=== PATIENT | male | born 1935 | race Caucasian/White ===

== ENCOUNTER 2017-03-21 14:46 | Inpatient (IN) ==
--- NOTE | 2017-03-21 15:01 | Emergency Department Note ---
Disposition Clinical Impression: Supraventricular tachycardia Disposition: Home, Self-Care Condition: Good Instructions: Supraventricular Tachycardia (ED), Chemical Cardioversion (ED) Reasons to Return/Additional Instructions: Your found to be in supraventricular tachycardia. You were given a medication to which her heart back into sinus rhythm AKA normal rhythm. Continue to stay hydrated take your medications as previously prescribed. Follow-up with your primary care physician and oncologist as scheduled. Return to the emergency department if symptoms return or you begin to feel worse. Referrals: Musa Lewis MD [Primary Care Provider] - Forms: ED Satisfaction Letter General Adult HPI - General Chief complaint: ED Weakness Stated complaint: Weakness, dizziness, vomiting Time Seen by Provider: 03/21/17 14:59 - Related Data Home Medications Medication Instructions Recorded Confirmed Amlodipine Besylate 10 mg PO DAILY 04/16/16 02/28/17 Atorvastatin [Lipitor] 40 mg PO HS 04/16/16 02/28/17 Carvedilol 3.125 mg PO BID 04/16/16 02/28/17 Diltiazem HCl [Tiazac] 120 mg PO DAILY 04/16/16 02/28/17 DiphenhydraMINE [Benadryl] 25 mg PO HS 04/16/16 02/28/17 Levothyroxine [Synthroid] 88 mcg PO QAM 04/16/16 02/28/17 Loratadine [Claritin] 10 mg PO DAILY PRN 04/16/16 02/28/17 Melatonin 6 mg PO HS 04/16/16 02/28/17 Multivitamin [Multi-Day Vitamins] 1 each PO DAILY 04/16/16 02/28/17 Omeprazole [PriLOSEC] 40 mg PO BID 04/16/16 02/28/17 Phenytoin ER [Dilantin ER] 200 mg PO TID 04/16/16 02/28/17 Resveratrol 100 mg PO DAILY 04/16/16 02/28/17 Terazosin HCl 4 mg PO HS 04/16/16 02/28/17 Triamcinolone Acetonide 1 appl TP DAILY 04/16/16 02/28/17 Valsartan [Diovan] 320 mg PO DAILY 04/16/16 02/28/17 Aspirin [Lo-Dose Aspirin EC] 81 mg PO DAILY 07/06/16 02/28/17 Previous Rx's Medication Instructions Recorded Ferrous Sulfate 325 mg PO TIDWM 30 Days 04/19/16 Polyethylene Glycol 3350 [MiraLAX 1 scoop PO DAILY #510 gm 04/27/16 Powder Bulk 17.9 Oz] Lidocaine/Prilocaine CREAM [Emla] 1 appl TP AD PRN #1 tube 05/03/16 Magic Mouthwash 5 - 10 ml PO TID PRN #480 ml 06/20/16 Mirtazapine [Remeron] 15 mg PO HS #30 tablet 08/22/16 Dexamethasone [Decadron] 4 mg PO AD #30 tablet 10/02/16 Docusate Sodium [Colace] 100 mg PO BID #60 capsule 11/13/16 Sennosides [Senna] 2 tab PO AD #60 tablet 11/13/16 Furosemide [Lasix] 40 mg PO DAILY PRN #30 tablet 11/29/16 Megestrol Acetate [Megace] 10 ml PO QAM #300 mls 12/04/16 Morphine Sulfate SR (12 HR) [MS 15 mg PO Q8HR #90 tablet.er 02/12/17 Contin] Oxycodone HCl [Oxaydo] 5 mg PO Q2H PRN #90 tablet.orl 02/12/17 Prochlorperazine Maleate 10 mg PO Q6HR PRN #60 tablet 02/28/17 [Compazine] Allergies Allergy/AdvReac Type Severity Reaction Status Date / Time No Known Allergies Allergy Verified 03/21/17 14:54 Past Medical History - Past Medical History Medical history: Reports: cancer, coronary artery disease, hypertension, myocardial infarction, seizures, other Surgical history: Reports: appendectomy, cholecystectomy, coronary bypass (CABG) Psychiatric history: Reports: no psych history - Social History Smoking Status: Never smoker Alcohol use: Reports: none Drug use: Reports: none Course Vital Signs Temperature 97.8 F 03/21/17 14:59 Pulse Rate 187 03/21/17 14:59 Respiratory Rate 16 03/21/17 14:59 Blood Pressure 102/74 03/21/17 14:59 O2 Sat by Pulse Oximetry 97 03/21/17 14:59 Temperature 97.8 F 03/21/17 14:59 Pulse Rate 86 03/21/17 16:32 Respiratory Rate 16 03/21/17 16:32 Blood Pressure 107/72 03/21/17 16:32 O2 Sat by Pulse Oximetry 100 03/21/17 16:32 Oxygen Delivery Oxygen Delivery Room Air Medical Decision Making - Lab Data Result diagrams: 03/21/17 15:30 03/21/17 15:30 Lab Results 03/21/17 03/21/17 Range/Units 15:30 15:30 WBC 10.0 (4.3-11.1) K/mcL RBC 3.41 L (4.19-5.50) M/mcL Hgb 9.8 L (12.9-16.9) g/dL Hct 29.6 L (37.5-50.1) % MCV 86.8 (83.0-100.0) fL MCH 28.7 (28.0-33.3) pg MCHC 33.1 (31.6-35.5) g/dL RDW 16.6 H (11.5-14.5) % Plt Count 561 H (140-400) K/mcL MPV 8.9 L (9.4-12.4) fL Immature Gran % 0.5 (0-4) % Seg Neutrophils % 73.9 % Lymphocytes % 13.3 % Monocytes % 10.4 % Eosinophils % 1.6 % Basophils % 0.3 % Neutrophils # 7.4 (1.6-8.9) K/mcL Lymphocytes # 1.3 (0.6-4.6) K/mcL Monocytes # 1.0 (0.0-1.3) K/mcL Eosinophils # 0.2 (0.0-0.6) K/mcL Basophils # 0.0 (0.0-0.2) K/mcL Sodium 132 L (136-145) mEq/L Potassium 3.6 (3.5-4.5) mEq/L Chloride 98 (98-109) mEq/L Carbon Dioxide 22 (19-29) mEq/L BUN 24 (8-26) mg/dL Creatinine 0.84 (0.72-1.25) mg/dL Est GFR ( Amer) > 60 (> 60) Est GFR (Non-Af Amer) > 60 (> 60) BUN/Creatinine Ratio 29 H (6-26) Glucose 112 H (70-99) mg/dL Calculated Osmolality 279 L (280-300) Calcium 9.5 (8.6-10.8) mg/dL Total Bilirubin 0.3 (0.2-1.2) mg/dL AST 89 H (5-34) Units/L ALT 75 H (0-55) Units/L Alkaline Phosphatase 364 H (38-126) Units/L Serum Total Protein 6.9 (6.0-8.3) g/dL Albumin 3.0 L (3.5-5.0) g/dL Globulin 3.9 H (2.4-3.5) g/dL Albumin/Globulin Ratio 0.8 L (1.1-2.2) Critical Care Time Critical Care Time: Yes Total Critical Care Time: 30 Attestation: Patient presents with a tachyarrhythmia requiring IV chemical cardioversion. Attestation Statement - Attestation Attestation: I examined this patient and my medical decision-making was reviewed with the SNAP SHEARER/PA/Advanced Practice Nurse/Resident Physician. I agree with the documented findings, disposition and treatment plan as described except to the extent set forth below. Face to face time provided Patient presents to the treatment area by wheelchair. He has a history of advanced gastric cancer. He is currently getting oral chemotherapy under the care of . He appears somewhat pale on exam. He is alert and speaks fluently. He reports feeling generally weak. Occasional intolerance to oral medications. The patient was seen and evaluated in conjunction with the resident physician Dr. Gross. ECG shows a narrow complex tachycardia suggestive of supraventricular tachycardia 15:45: IV adenosine given with return to near complex rhythm. Patient tolerated procedure well. 18:10: Prior to discharge the patient went back into SVT requiring additional adenosine. We will admit him for telemetry monitoring
[2017-03-21] MEDS ORDERED: *HR* Adenosine 6 MG/2 ML VIAL IVP ONE ×7 (15:36→22:36)
[2017-03-21] MEDS ORDERED: 0.9 % Sodium Chloride 1,000 ML IVC ONE (15:36)
[2017-03-21 15:40] LABS: Basophils % 0.3 %; Eosinophils # 0.2 K/mcL (0.0-0.6); Eosinophils % 1.6 %; Hematocrit 29.6 % (37.5-50.1); Hemoglobin 9.8 g/dL (12.9-16.9); Immature Granulocytes % 0.5 % (0-4); Lymphocytes # 1.3 K/mcL (0.6-4.6); Lymphocytes % 13.3 %; Mean Corpuscular HGB Conc 33.1 g/dL (31.6-35.5); Mean Corpuscular Hemoglobin 28.7 pg (28.0-33.3); Mean Corpuscular Volume 86.8 fL (83.0-100.0); Mean Platelet Volume 8.9 fL (9.4-12.4); Monocytes % 10.4 %; Neutrophils # 7.4 K/mcL (1.6-8.9); Platelet Count 561 K/mcL (140-400); Red Blood Count 3.41 M/mcL (4.19-5.50); Red Cell Distribution Width 16.6 % (11.5-14.5); Segmented Neutrophils % 73.9 %
[2017-03-21 15:55] LABS: Alanine Aminotransferase 75 Units/L (0-55); Albumin/Globulin Ratio 0.8 (1.1-2.2); Alkaline Phosphatase 364 Units/L (38-126); Aspartate Amino Transferase 89 Units/L (5-34); BUN/Creatinine Ratio 29 (6-26); Bilirubin,Total 0.3 mg/dL (0.2-1.2); Blood Urea Nitrogen 24 mg/dL (8-26); Calcium 9.5 mg/dL (8.6-10.8); Carbon Dioxide 22 mEq/L (19-29); Chloride 98 mEq/L (98-109); Globulin 3.9 g/dL (2.4-3.5); Glucose 112 mg/dL (70-99); Osmolality,Calculated 279 (280-300); Potassium 3.6 mEq/L (3.5-4.5); Sodium 132 mEq/L (136-145); Total Protein 6.9 g/dL (6.0-8.3); eGFR For African Americans > 60 (> 60); eGFR For Non-African Americans > 60 (> 60)
--- NOTE | 2017-03-21 18:01 | Emergency Department Note ---
Disposition Clinical Impression: Supraventricular tachycardia Disposition: Home, Self-Care Condition: Good General Adult HPI - General Chief complaint: ED Weakness Stated complaint: Weakness, dizziness, vomiting Time Seen by Provider: 03/21/17 14:59 Source: patient, family Limitations: no limitations - History of Present Illness HPI Narrative: Patient here for evaluation of nausea and weakness. Patient states that he has been having intermittent symptoms for the last week or so. Patient states that he feels like throwing up but has not had any episodes of vomiting. Patient does not have fever or chest pain or shortness of breath. Upon attaching the patient to monitor his heart rate was 180 and EKG showed supraventricular tachycardia. Patient has no history of similar. Adenosine used with good response. Initial labs negative. Patient required a second dose of adenosine and then admission to the hospital. Troponin added after second round of adenosine. Pain Scale: 0 - Related Data Home Medications Medication Instructions Recorded Confirmed Amlodipine Besylate 10 mg PO DAILY 04/16/16 03/21/17 Atorvastatin [Lipitor] 40 mg PO HS 04/16/16 03/21/17 Carvedilol 3.125 mg PO BID 04/16/16 03/21/17 Diltiazem HCl [Tiazac] 120 mg PO DAILY 04/16/16 03/21/17 DiphenhydraMINE [Benadryl] 25 mg PO HS 04/16/16 03/21/17 Levothyroxine [Synthroid] 88 mcg PO QAM 04/16/16 03/21/17 Loratadine [Claritin] 10 mg PO DAILY PRN 04/16/16 03/21/17 Melatonin 6 mg PO HS 04/16/16 03/21/17 Multivitamin [Multi-Day Vitamins] 1 each PO DAILY 04/16/16 03/21/17 Omeprazole [PriLOSEC] 40 mg PO BID 04/16/16 03/21/17 Phenytoin ER [Dilantin ER] 200 mg PO TID 04/16/16 03/21/17 Resveratrol 100 mg PO DAILY 04/16/16 03/21/17 Terazosin HCl 4 mg PO HS 04/16/16 03/21/17 Triamcinolone Acetonide 1 appl TP DAILY 04/16/16 03/21/17 Valsartan [Diovan] 320 mg PO DAILY 04/16/16 03/21/17 Aspirin [Lo-Dose Aspirin EC] 81 mg PO DAILY 07/06/16 03/21/17 Clopidogrel [Plavix] 75 mg PO DAILY 03/21/17 03/21/17 Morphine Sulfate SR (12 HR) [MS 15 mg PO Q8HR PRN 03/21/17 03/21/17 Contin] Sennosides [Senna] 17.2 mg PO HS PRN 03/21/17 03/21/17 Tizanidine HCl 2 mg PO HS PRN 03/21/17 03/21/17 Previous Rx's Medication Instructions Recorded Lidocaine/Prilocaine CREAM [Emla] 1 appl TP AD PRN #1 tube 05/03/16 Magic Mouthwash 5 - 10 ml PO TID PRN #480 ml 06/20/16 Mirtazapine [Remeron] 15 mg PO HS #30 tablet 08/22/16 Docusate Sodium [Colace] 100 mg PO BID #60 capsule 11/13/16 Furosemide [Lasix] 40 mg PO DAILY PRN #30 tablet 11/29/16 Megestrol Acetate [Megace] 10 ml PO QAM #300 mls 12/04/16 Oxycodone HCl [Oxaydo] 5 mg PO Q2H PRN #90 tablet.orl 02/12/17 Prochlorperazine Maleate 10 mg PO Q6HR PRN #60 tablet 02/28/17 [Compazine] Allergies Allergy/AdvReac Type Severity Reaction Status Date / Time No Known Allergies Allergy Verified 03/21/17 14:54 Review of Systems: CONSTITUTIONAL: Weakness and fatigue No weight loss, fever, chills, HEENT: Eyes: No visual changes. Ears, Nose, Throat: No hearing loss, difficulty talking or unable to swallow. SKIN: No rash or itching. CARDIOVASCULAR: No chest pain, chest pressure or chest discomfort. No palpitations or edema. RESPIRATORY: No shortness of breath, cough or sputum. GASTROINTESTINAL:nausea, No anorexia, vomiting or diarrhea. No abdominal pain or blood. GENITOURINARY: No burning on urination or hematuria. NEUROLOGICAL: No headache, dizziness, syncope, paralysis, ataxia, numbness or tingling in the extremities. No change in bowel or bladder control. MUSCULOSKELETAL: No muscle pain, back pain, joint pain or stiffness. Past Medical History - Past Medical History Medical history: Reports: cancer, coronary artery disease, hypertension, myocardial infarction, seizures, other Surgical history: Reports: appendectomy, cholecystectomy, coronary bypass (CABG) Psychiatric history: Reports: no psych history - Social History Smoking Status: Never smoker Smokeless Tobacco Status: No Alcohol use: Reports: none Drug use: Reports: none Physical Exam General appearance: NAD, conversant Eyes: anicteric sclerae, moist conjunctivae; PERRL HENT: Atraumatic; oropharynx clear with moist mucous membranes and no mucosal ulcerations Neck: Normal inspection; Trachea midline; FROM, supple Lungs: CTA, with normal respiratory effort and no intercostal retractions CV: Tachycardia Abdomen: Soft, non-tender; no rebound or gaurding Extremities: No peripheral edema or extremity lymphadenopathy Skin: Normal temperature; no rash, ulcers or lesions Psych: Appropriate mood and affect Neuro: alert and oriented to person, place and time - General Limitations: no limitations General appearance: alert Course - Reevaluation(s) Reevaluation #1: Patient given 6 more grams of adenosine with conversion to sinus rhythm. Reevaluation #2: Upon giving the patient has discharge papers; he went back into SVT and the patient was given another 6 mg of adenosine which converted him back to sinus rhythm. - Consultations Consultation #1: Dr. RAINEY discussed with the hospitalist. Patient accepted for admission Vital Signs Temperature 97.8 F 03/21/17 14:59 Pulse Rate 187 03/21/17 14:59 Respiratory Rate 16 03/21/17 14:59 Blood Pressure 102/74 03/21/17 14:59 O2 Sat by Pulse Oximetry 97 03/21/17 14:59 Temperature 97.8 F 03/21/17 14:59 Pulse Rate 85 03/21/17 18:44 Respiratory Rate 16 03/21/17 19:15 Blood Pressure 107/67 03/21/17 19:15 O2 Sat by Pulse Oximetry 98 03/21/17 18:44 Oxygen Delivery Oxygen Delivery Room Air Medical Decision Making - Medical Records Medical records reviewed: Yes I reviewed the patient's medical records. - Lab Data Lab results reviewed: Yes I reviewed the patient's lab results. Result diagrams: 03/21/17 15:30 03/21/17 15:30 Lab Results 03/21/17 03/21/17 03/21/17 Range/Units 15:30 15:30 15:36 WBC 10.0 (4.3-11.1) K/mcL RBC 3.41 L (4.19-5.50) M/mcL Hgb 9.8 L (12.9-16.9) g/dL Hct 29.6 L (37.5-50.1) % MCV 86.8 (83.0-100.0) fL MCH 28.7 (28.0-33.3) pg MCHC 33.1 (31.6-35.5) g/dL RDW 16.6 H (11.5-14.5) % Plt Count 561 H (140-400) K/mcL MPV 8.9 L (9.4-12.4) fL Immature Gran % 0.5 (0-4) % Seg Neutrophils % 73.9 % Lymphocytes % 13.3 % Monocytes % 10.4 % Eosinophils % 1.6 % Basophils % 0.3 % Neutrophils # 7.4 (1.6-8.9) K/mcL Lymphocytes # 1.3 (0.6-4.6) K/mcL Monocytes # 1.0 (0.0-1.3) K/mcL Eosinophils # 0.2 (0.0-0.6) K/mcL Basophils # 0.0 (0.0-0.2) K/mcL Sodium 132 L (136-145) mEq/L Potassium 3.6 (3.5-4.5) mEq/L Chloride 98 (98-109) mEq/L Carbon Dioxide 22 (19-29) mEq/L BUN 24 (8-26) mg/dL Creatinine 0.84 (0.72-1.25) mg/dL Est GFR ( Amer) > 60 (> 60) Est GFR (Non-Af Amer) > 60 (> 60) BUN/Creatinine Ratio 29 H (6-26) Glucose 112 H (70-99) mg/dL Calculated Osmolality 279 L (280-300) Calcium 9.5 (8.6-10.8) mg/dL Total Bilirubin 0.3 (0.2-1.2) mg/dL AST 89 H (5-34) Units/L ALT 75 H (0-55) Units/L Alkaline Phosphatase 364 H (38-126) Units/L Troponin I 0.05 H* (0-0.03) ng/mL Serum Total Protein 6.9 (6.0-8.3) g/dL Albumin 3.0 L (3.5-5.0) g/dL Globulin 3.9 H (2.4-3.5) g/dL Albumin/Globulin Ratio 0.8 L (1.1-2.2) - Radiology Data Radiology results reviewed: Yes I reviewed the patient's radiology results. - EKG Data EKG #1 EKG attestation: Yes I reviewed and interpreted this EKG. EKG results narrative: Initial EKG shows supraventricular tachycardia with ventricular rate of 187. Patient was given adenosine and EKG changed to sinus rhythm with occasional PVCs. Ventricular rate of 90 with MT interval 175. QRS 93. QTC 41. Patient has no ST elevations or depressions. Patient has similar in to appearance of . Repeat adenosine again converted the patient to sinus rhythm with PVCs. Ventricular rate of 89 bpm. No other changes
[2017-03-21] MEDS ORDERED: Acetaminophen 325 MG TABLET PO PRN (20:48)
[2017-03-21] MEDS ORDERED: Naloxone 0.4 MG/ML INJ IVP PRN (20:48)
[2017-03-21] MEDS ORDERED: Ondansetron 4 MG/2 ML VIAL IVP PRN (20:48)
[2017-03-21] MEDS ORDERED: Sennosides 8.6 MG TABLET PO PRN (20:51)
[2017-03-21] MEDS ORDERED: Loratadine 10 MG TABLET PO PRN (20:51)
[2017-03-21] MEDS ORDERED: tiZANidine 4 MG TABLET PO PRN (20:51)
[2017-03-21] MEDS ORDERED: Furosemide 40 MG TABLET PO PRN (20:51)
[2017-03-21] MEDS ORDERED: *HR* Metoprolol 5 MG/5 ML VIAL IVP PRN (20:58)
[2017-03-21] MEDS: Melatonin 3 MG TABLET PO SCH (22:00)
[2017-03-21] MEDS: Mirtazapine 15 MG TABLET PO SCH (22:00)
[2017-03-21] MEDS: 0.9 % Sodium Chloride 1,000 ML IVC SCH (22:07)
[2017-03-21] MEDS: Diltiazem CD (24hr) 120 MG CAPSULE PO SCH (22:07)
--- NOTE | 2017-03-22 00:21 | Internal Med History&Physical ---
Date of Encounter: 03/21/17 Time of Encounter: 20:00 Assessment and Plan (1) Supraventricular tachycardia Current visit: Yes Status: Acute Frequent SVT episodes, etiology is undetermined. Patient has no symptoms. - Place patient on continuous cardiac monitoring. - Hold amlodipine and valsartan, increased dose of Coreg. Metoprolol 5 mg IV when necessary - Check TSH and magnesium in a.m. - Echocardiogram. - Consult cardiology. (2) Hypertension Current visit: No Status: Chronic Hold home medication amlodipine and valsartan to have more BP space for SVT treatment. BP is not high now. Increase Coreg dose to 6.25 mg twice a day. Continue Cardizem ER by mouth 120 mg once a day. Qualifiers: Hypertension type: essential hypertension Qualified Code(s): I10 - Essential (primary) hypertension (3) Seizure Current visit: Yes Status: Acute Stable, continue home medications. 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 Patient is following oncology as outpatient. Qualifiers: Malignant neoplasm of stomach location: fundus of stomach Qualified Code(s) : C16.1 - Malignant neoplasm of fundus of stomach (7) Coronary artery disease Current visit: No Status: Chronic S/p CABG. No chest pain. Continue home medications. Qualifiers: Coronary Disease-Associated Artery/Lesion type: bypass graft, autologous vein Associated angina: without angina Qualified Code(s): I25.810 - Atherosclerosis of coronary artery bypass graft(s) without angina pectoris Internal Medicine - H&P: HPI Chief complaint: Weakness Admitted From: Home Plans for Post Hospital Care: Home History of present illness: Mr. Llamas is a 82 year old male presented to ER for weakness. Patient said that he has weakness of for about 1 week. He denies chest pain, shortness of breath, she had mild nausea but no vomiting, patient has no fever. In emergency room, he was found SVT, which converts to sinus rhythm on adenosine IV. However, patient did develop another episode of SVT and the need another dose of adenosine. Patient was admitted for observation. After I saw patient in the 2NE, he developed another episode of SVT, converts to sinus after 6 mg adenosine. I discussed the CODE STATUS with patient. He is DNRCCA. Past Med Surg Social Fam HX - Past Medical History Medical history: cancer, coronary artery disease, hypertension, myocardial infarction, seizures, other Psychiatric history: no psych history - Past Surgical History Surgical History: appendectomy, cholecystectomy, coronary bypass (CABG) - Social History Smoking Status: Never smoker Smokeless Tobacco Status: No Alcohol use: none Drug use: none - Family History Mother History Unknown: Yes Living Status: Father History Unknown: Yes Living Status: Internal Medicine - H&P: Meds Amlodipine Besylate 10 mg PO DAILY 04/16/16 [History] Atorvastatin [Lipitor] 40 mg PO HS 04/16/16 [History] Carvedilol 3.125 mg PO BID 04/16/16 [History] Diltiazem HCl [Tiazac] 120 mg PO DAILY 04/16/16 [History] DiphenhydraMINE [Benadryl] 25 mg PO HS 04/16/16 [History] Levothyroxine [Synthroid] 88 mcg PO QAM 04/16/16 [History] Loratadine [Claritin] 10 mg PO DAILY PRN 04/16/16 [History] Melatonin 6 mg PO HS 04/16/16 [History] Multivitamin [Multi-Day Vitamins] 1 each PO DAILY 04/16/16 [History] Omeprazole [PriLOSEC] 40 mg PO BID 04/16/16 [History] Phenytoin ER [Dilantin ER] 200 mg PO TID 04/16/16 [History] Resveratrol 100 mg PO DAILY 04/16/16 [History] Terazosin HCl 4 mg PO HS 04/16/16 [History] Triamcinolone Acetonide 1 appl TP DAILY 04/16/16 [History] Valsartan [Diovan] 320 mg PO DAILY 04/16/16 [History] Lidocaine/Prilocaine CREAM [Emla] 1 appl TP AD PRN #1 tube 05/03/16 [Rx] Magic Mouthwash 5 - 10 ml PO TID PRN #480 ml 06/20/16 [Rx] Aspirin [Lo-Dose Aspirin EC] 81 mg PO DAILY 07/06/16 [History] Mirtazapine [Remeron] 15 mg PO HS #30 tablet 08/22/16 [Rx] Docusate Sodium [Colace] 100 mg PO BID #60 capsule 11/13/16 [Rx] Furosemide [Lasix] 40 mg PO DAILY PRN #30 tablet 11/29/16 [Rx] Megestrol Acetate [Megace] 10 ml PO QAM #300 mls 12/04/16 [Rx] Oxycodone HCl [Oxaydo] 5 mg PO Q2H PRN #90 tablet.orl 02/12/17 [Rx] Prochlorperazine Maleate [Compazine] 10 mg PO Q6HR PRN #60 tablet 02/28/17 [Rx] Clopidogrel [Plavix] 75 mg PO DAILY 03/21/17 [History] Morphine Sulfate SR (12 HR) [MS Contin] 15 mg PO Q8HR PRN 03/21/17 [History] Sennosides [Senna] 17.2 mg PO HS PRN 03/21/17 [History] Tizanidine HCl 2 mg PO HS PRN 03/21/17 [History] Allergies No Known Allergies Allergy (Verified 03/21/17 14:54) All Systems PM: A 10-system review of systems was performed and is negative for pertinent findings except as documented above in the HPI. - Constitutional Vitals: Temp Pulse Resp BP Pulse Ox 98.2 F 96 18 137/95 97 03/21/17 19:33 03/21/17 19:33 03/21/17 19:33 03/21/17 19:33 03/21/17 19:59 General appearance: Present: A&O X 3, no acute distress, answers questions appropriately - Head Head exam: Present: atraumatic, normocephalic - Eye Eye exam: Present: PERRL, conjuntiva pink, sclera anicteric Pupils: Present: PERRL - Neck Neck exam general surgery: Present: supple, trachea midline. Absent: lymphadenopathy - Respiratory Respiratory exam: Present: CTAB. Absent: accessory muscle use, rales, rhonchi, wheezes - Cardiovascular Cardiovascular exam: Present: RRR, +S1, +S2. Absent: diastolic murmur, gallop, rubs, systolic murmur - GI/Abdominal GI/Abdominal exam: Present: normal bowel sounds, soft, no peritoneal signs. Absent: distended, tenderness - Extremities Exam Extremities exam: Present: warm, radial pulses palpable and symetrical. Absent : calf tenderness, cyanotic, pedal edema - Neurological Exam Neurological exam: Present: CN II-XII intact, oriented X3, no focal deficits. Absent: pronater drift, facial droop, speech deficit - Skin Skin exam: Present: dry, intact Internal Med - H&P Results - Labs CBC & Chem 7: 03/21/17 15:30 03/21/17 15:30 - EKG Data -: EKG Interpreted by Myself Rate: tachycardia
[2017-03-22] MEDS ORDERED: *HR* Digoxin 0.5 MG/2 ML AMPUL IVP ONE (00:41)
[2017-03-22 04:29] LABS: Basophils % 0.4 %; Eosinophils # 0.2 K/mcL (0.0-0.6); Eosinophils % 2.6 %; Hematocrit 26.9 % (37.5-50.1); Hemoglobin 8.9 g/dL (12.9-16.9); Immature Granulocytes % 0.4 % (0-4); Lymphocytes # 1.2 K/mcL (0.6-4.6); Lymphocytes % 15.8 %; Mean Corpuscular HGB Conc 33.1 g/dL (31.6-35.5); Mean Corpuscular Volume 87.6 fL (83.0-100.0); Mean Platelet Volume 9.1 fL (9.4-12.4); Monocytes # 0.7 K/mcL (0.0-1.3); Monocytes % 9.4 %; Neutrophils # 5.6 K/mcL (1.6-8.9); Platelet Count 411 K/mcL (140-400); Red Blood Count 3.07 M/mcL (4.19-5.50); Segmented Neutrophils % 71.4 %
[2017-03-22 04:37] LABS: Alanine Aminotransferase 64 Units/L (0-55); Albumin 2.6 g/dL (3.5-5.0); Albumin/Globulin Ratio 0.7 (1.1-2.2); Alkaline Phosphatase 324 Units/L (38-126); Aspartate Amino Transferase 77 Units/L (5-34); BUN/Creatinine Ratio 28 (6-26); Bilirubin,Total 0.4 mg/dL (0.2-1.2); Blood Urea Nitrogen 19 mg/dL (8-26); Calcium 8.7 mg/dL (8.6-10.8); Carbon Dioxide 21 mEq/L (19-29); Chloride 104 mEq/L (98-109); Globulin 3.6 g/dL (2.4-3.5); Glucose 96 mg/dL (70-99); Magnesium 1.6 mg/dL (1.6-2.6); Osmolality,Calculated 280 (280-300); Phosphorous 3.4 mg/dL (2.3-4.7); Potassium 3.5 mEq/L (3.5-4.5); Sodium 134 mEq/L (136-145); Total Protein 6.2 g/dL (6.0-8.3); eGFR For African Americans > 60 (> 60); eGFR For Non-African Americans > 60 (> 60)
[2017-03-22] MEDS: *HR* Heparin 5,000 UNIT/ML VIAL SQ SCH ×2 (06:20→18:09)
--- NOTE | 2017-03-22 06:59 | Event Note ---
Date of Encounter: 03/22/17 Time of Encounter: 06:00 Pt has SVT and sinus rhytms alternatively during whole night, he tolerate well, no symptoms. Cannot stay at sinus rhythm. Since BP at lower side, no further metoprolol or adenosine given. Digoxin 0.5 mg iv once given at around 1 am, no significant change with the rhythm. Waiting for cardiology input.
--- NOTE | 2017-03-22 08:56 | Cardiology Consult Note ---
Date of Encounter: 03/22/17 Time of Encounter: 08:30 Assessment and Plan (1) Supraventricular tachycardia Current Visit: Yes Status: Acute Currently in SVT HR 160's. H/o SVT seen on previous holter monitors. Primary team reports difficult to control SVT overnight. He received two rounds of adenosine in the ER with initial conversion to NSR. He continued to have intermittent SVT overnight treated with IV lopressor. D/t low blood pressure he was then given IV digoxin this morning. Currently in sustained SVT. Avg Hr overnight was 136 bpm. I will review EKG with Dr. Israel and discuss plan of care. Patient is currently asymptomatic. He does not respond to vagal maneuvers. Continue IV fluid to keep b/p up. Echocardiogram 09/2016: EF 65%. Mild concentric LVH. (2) PAF (paroxysmal atrial fibrillation) Current Visit: Yes Status: Chronic H/o PAF. He is currently not on anticoagulation d/t seizures and gastric cancer. (3) Coronary artery disease Current Visit: No Status: Chronic H/o 2V CABG in 2007 and previous PCI. Continue asa, statin, and beta yadi. He denies chest pain. Mild troponin at 0.05 from demand ischemia from SVT. Continue to monitor. Qualifiers: Coronary Disease-Associated Artery/Lesion type: bypass graft, autologous vein Associated angina: without angina Qualified Code(s): I25.810 - Atherosclerosis of coronary artery bypass graft(s) without angina pectoris Discussion w patient/family: The assessment and plan as outlined above was discussed with the patient and/or family members who expressed understanding and agreement. All questions were answered. Thank you for involving us in the care of your patient. Please call with any questions. History of Present Illness Consult date: 03/22/17 Requesting physician: Raúl Sadler Consult reason: SVT Chief complaint: fatigue, weakness History of present illness: Mr. Llamas is a 82 year old male with a history of CAD, previous 2V CABG in 2007, prior PCI, PAF,SVT, mild ascending aortic aneurysm (4.3 cm), and advanced adenocarcinoma of the stomach currently on chemotherapy. He presented to the hospital c/o not feeling well overall for one week. C/o weakness and . He was found to have SVT. He was treated with metoprolol and 2 rounds of adenosine IV with initial conversion to SR. He continued to have recurrent SVT overnight. B/p dropped as low as 60 systolic and he required IV fluid bolus. HR currently 160's. He was given IV digoxin this morning with no response. Denies chest pain or discomfort. No palpitations, near syncope, or syncope. Reports 50 lb weight loss over the past six months. He is not on anticoagulation d/t h/o seizures and gastric cancer. Prior studies: Vasodilator nuclear stress test 07/30/2014: Negative for ischemia or prior infarct. Holter monitor 04/27/2014: Normal sinus rhythm with an average heart rate of 64. Occasional PACs. For episodes of SVT, longest 65 beats. Echocardiogram 04/11/2014: EF 60%. Mild TR. Echocardiogram 09/2016: EF 65%. Mild concentric LVH. CT thorax 08/10/2014: Mild dilation of the ascending aorta measuring 4.3 cm ( 2012 - 4.3 cm x 4.3 cm). Cholesterol 01/24/2016: Total 154, LDL 94, HDL 37, and triglycerides 113. Past Med Surg Social Fam HX - Past Medical History Medical history: atrial fibrillation, cancer, coronary artery disease, hypertension, myocardial infarction, seizures, SVT, other Psychiatric history: no psych history - Past Surgical History Surgical History: appendectomy, cholecystectomy, coronary bypass (CABG) - Social History Smoking Status: Never smoker Smokeless Tobacco Status: No Alcohol use: none Drug use: none - Family History Mother History Unknown: Yes Living Status: Father History Unknown: Yes Living Status: Medications and Allergies Amlodipine Besylate 10 mg PO DAILY 04/16/16 [History] Atorvastatin [Lipitor] 40 mg PO HS 04/16/16 [History] Carvedilol 3.125 mg PO BID 04/16/16 [History] Diltiazem HCl [Tiazac] 120 mg PO DAILY 04/16/16 [History] DiphenhydraMINE [Benadryl] 25 mg PO HS 04/16/16 [History] Levothyroxine [Synthroid] 88 mcg PO QAM 04/16/16 [History] Loratadine [Claritin] 10 mg PO DAILY PRN 04/16/16 [History] Melatonin 6 mg PO HS 04/16/16 [History] Multivitamin [Multi-Day Vitamins] 1 each PO DAILY 04/16/16 [History] Omeprazole [PriLOSEC] 40 mg PO BID 04/16/16 [History] Phenytoin ER [Dilantin ER] 200 mg PO TID 04/16/16 [History] Resveratrol 100 mg PO DAILY 04/16/16 [History] Terazosin HCl 4 mg PO HS 04/16/16 [History] Triamcinolone Acetonide 1 appl TP DAILY 04/16/16 [History] Valsartan [Diovan] 320 mg PO DAILY 04/16/16 [History] Lidocaine/Prilocaine CREAM [Emla] 1 appl TP AD PRN #1 tube 05/03/16 [Rx] Magic Mouthwash 5 - 10 ml PO TID PRN #480 ml 06/20/16 [Rx] Aspirin [Lo-Dose Aspirin EC] 81 mg PO DAILY 07/06/16 [History] Mirtazapine [Remeron] 15 mg PO HS #30 tablet 08/22/16 [Rx] Docusate Sodium [Colace] 100 mg PO BID #60 capsule 11/13/16 [Rx] Furosemide [Lasix] 40 mg PO DAILY PRN #30 tablet 11/29/16 [Rx] Megestrol Acetate [Megace] 10 ml PO QAM #300 mls 12/04/16 [Rx] Oxycodone HCl [Oxaydo] 5 mg PO Q2H PRN #90 tablet.orl 02/12/17 [Rx] Prochlorperazine Maleate [Compazine] 10 mg PO Q6HR PRN #60 tablet 02/28/17 [Rx] Clopidogrel [Plavix] 75 mg PO DAILY 03/21/17 [History] Morphine Sulfate SR (12 HR) [MS Contin] 15 mg PO Q8HR PRN 03/21/17 [History] Sennosides [Senna] 17.2 mg PO HS PRN 03/21/17 [History] Tizanidine HCl 2 mg PO HS PRN 03/21/17 [History] Allergies No Known Allergies Allergy (Verified 03/21/17 14:54) All Systems Review: A 10-system review of systems was performed and is negative for pertinent findings except as documented above in the HPI. Physical Examination Vital Signs, Last 4 Hours Temp Pulse Resp BP Pulse Ox 03/22/17 06:54 97.6 F 171 16 82/71 96 General: Conversant, No Apparent Distress HEENT: Atraumatic, Normocephaly, Mucus Membranes Moist Neck: No JVD, Normal carotid pulses Cardiac: Normal S1 and S2, Other (HR 165, SVT) Lungs: Normal Breath Sounds, No Wheeze, Rales, Rhonchi Neuro: Alert and responsive, No focal deficits noted Abdomen: Soft, Non-Tender Skin: No rashes noted on visualized skin Musculoskeletal: No Chest Wall Tenderness Extremities: No Clubbing, No Cyanosis, No Edema, Normal Pulses Results 03/22/17 04:03 03/22/17 04:03 Lab Results 03/22/17 03/22/17 03/22/17 04:03 04:03 04:03 WBC 7.8 Hgb 8.9 L Hct 26.9 L Plt Count 411 H Sodium 134 L Potassium 3.5 Chloride 104 Carbon Dioxide 21 BUN 19 Creatinine 0.69 L Glucose 96 Calcium 8.7 Magnesium 1.6 Total Bilirubin 0.4 AST 77 H ALT 64 H Alkaline Phosphatase 324 H TSH 2.572 - Imaging and Cardiology Stress Test: report reviewed Echo: report reviewed - EKG Interpretation EKG results cardiology: personally reviewed (SVT, possible AVNRT, HR 177 bpm.) Consult Discharge Plan - Plan Referrals: Musa Lewis MD [Primary Care Provider] - 04/05/17 10:00 am
--- NOTE | 2017-03-22 09:05 | Internal Med Progress Note ---
<Jonny Parker - Last Filed: 03/22/17 13:38> Date of Encounter: 03/22/17 Time of Encounter: 13:38 - Assessment and plan (1) Supraventricular tachycardia Current Visit: Yes Status: Acute Assessment and plan: 82-year-old male with history of gastric cancer, coronary artery disease, hypertension, myocardial infarction presents with chief complaint weakness, found to be in supraventricular tachycardia. Patient was converted to sinus rhythm with adenosine however rhythm converted back into SVT. This occurred 3 times and patient became hypotensive with blood pressures 80s over 50. He was given digoxin without success. At this point patient was started on IV fluids and cardiology was consulted. Continues to be in SVt with rate from 140-170s Previous echo shows EF of 65%. Nuclear stress test in 2013 negative for ischemia. Cardiology recommends patient started on amiodarone drip. Patient was transferred to [facility]. Continue telemetry Patient is awake, alert and oriented 3, conversing well, with oxygen saturation were 90% on room air. (2) Coronary artery disease Current Visit: Yes Status: Chronic Assessment and plan: Status post 2 vessel CABG in 2007 with previous PCI. Continue aspirin, statin, beta yadi. Troponin of 0.05 likely from demand ischemia from SVT. Qualifiers: Coronary Disease-Associated Artery/Lesion type: bypass graft, autologous vein Associated angina: without angina Qualified Code(s): I25.810 - Atherosclerosis of coronary artery bypass graft(s) without angina pectoris (3) DVT prophylaxis Current Visit: Yes Status: Acute Assessment and plan: Continue heparin. (4) Gastric cancer Current Visit: Yes Status: Chronic Assessment and plan: Metastatic gastric adenocarcinoma Undergoing chemotherapy currently on 5-FU On MS Contin 3 times a day and oxycodone IR for cancer associated pain followed by Dr. Stearns Qualifiers: Malignant neoplasm of stomach location: fundus of stomach Qualified Code(s) : C16.1 - Malignant neoplasm of fundus of stomach (5) Seizure Current Visit: Yes Status: Acute Assessment and plan: hx of seizure on Dilantin, will continue. - Subjective Interval history: Patient states he presented to ER with chief complaint of weakness started 1 week ago. This morning patient's heart rate ranges from 140s to 170s. EKG shows SVT. He denies chest pain, shortness of breath, nausea, abdominal pain, numbness, tingling. - Constitutional Vitals: Temp Pulse Resp BP Pulse Ox 97.6 F 171 16 82/71 96 03/22/17 06:54 03/22/17 06:54 03/22/17 06:54 03/22/17 06:54 03/22/17 06:54 General appearance: Present: A&O X 3, no acute distress, answers questions appropriately - Head Head exam: Present: atraumatic, normocephalic - Eye Eye exam: Present: PERRL, conjuntiva pink, sclera anicteric - Neck Neck exam general surgery: Present: supple, trachea midline. Absent: lymphadenopathy - Respiratory Respiratory exam: Present: CTAB. Absent: accessory muscle use, rales, rhonchi, wheezes - Cardiovascular Cardiovascular exam: Present: +S1, +S2, tachycardia. Absent: diastolic murmur, gallop, rubs, systolic murmur - GI/Abdominal GI/Abdominal exam: Present: normal bowel sounds, soft, no peritoneal signs. Absent: distended, tenderness - Extremities Exam Extremities exam: Present: warm, radial pulses palpable and symetrical. Absent : calf tenderness, cyanotic, pedal edema - Neurological Exam Neurological exam: Present: CN II-XII intact, oriented X3, no focal deficits. Absent: pronater drift, facial droop, speech deficit - Skin Skin exam: Present: dry, intact Internal Medicine: Result - Labs CBC & Chem 7: 03/22/17 04:03 03/22/17 04:03 Labs: Short CBC 03/22/17 Range/Units 04:03 WBC 7.8 (4.3-11.1) K/mcL Hgb 8.9 L (12.9-16.9) g/dL Hct 26.9 L (37.5-50.1) % Plt Count 411 H (140-400) K/mcL Neutrophils # 5.6 (1.6-8.9) K/mcL BMP 03/22/17 04:03 Sodium 134 L Potassium 3.5 Chloride 104 Carbon Dioxide 21 BUN 19 Creatinine 0.69 L Glucose 96 Calcium 8.7 Liver Function 03/22/17 Range/Units 04:03 Total Bilirubin 0.4 (0.2-1.2) mg/dL AST 77 H (5-34) Units/L ALT 64 H (0-55) Units/L Alkaline Phosphatase 324 H (38-126) Units/L Albumin 2.6 L (3.5-5.0) g/dL Consult Discharge Plan - Plan Referrals: Musa Lewis MD [Primary Care Provider] - 04/01/17 10:30 am <Raúl Sadler - Last Filed: 03/22/17 17:28> Date of Encounter: 03/22/17 - Constitutional Vitals: Temp Pulse Resp BP Pulse Ox 98.7 F 79 18 115/58 96 03/22/17 15:56 03/22/17 15:56 03/22/17 15:56 03/22/17 15:56 03/22/17 15:56 Internal Medicine: Result - Labs CBC & Chem 7: 03/22/17 04:03 03/22/17 04:03 - Attending Attestation I examined this patient and my medical decision-making was reviewed with the PERISHABLE FREIGHT INSPECTOR/PA/Advanced Practice Nurse/Resident Physician. I agree with the documented findings, disposition and treatment plan as described except to the extent set forth below. appreciated cardiology input will get hematology oncology opinion tomorrow based on their (haem-Onc) recommendations will decide further plans.
[2017-03-22] MEDS: Megestrol Acetate 400 MG/10 ML UDC PO SCH (09:15)
[2017-03-22] MEDS: Multivit/Ca/Min/Fe/FA 1 TAB TABLET PO SCH (09:15)
[2017-03-22] MEDS: Aspirin Enteric Coated 81 MG Tablet PO SCH (09:16)
[2017-03-22] MEDS: Triamcinolone Acet 0.1% CRM 15 GM TUBE TP SCH (09:16)
[2017-03-22] MEDS: Diltiazem CD (24hr) 120 MG CAPSULE PO SCH (09:16)
[2017-03-22] MEDS: RESVERATROL 100 MG PO SCH (09:17)
[2017-03-22] MEDS: 0.9 % Sodium Chloride 1,000 ML IVC SCH (09:21)
[2017-03-22] MEDS ORDERED: Amiodarone Premix 360 MG/200 ML BAG IVC ONE (10:30)
[2017-03-22] MEDS ORDERED: Amiodarone Premix 150 MG/100 ML BAG IVPB ONE (10:30)
[2017-03-22] MEDS: *HR* Morphine Sulfate SR (12 HR) 15 MG TABLET.ER PO PRN (14:41)
[2017-03-22] MEDS: *HR* OxyCODONE Immed Rel 5 MG TABLET PO PRN (15:51)
[2017-03-22] MEDS: Amiodarone Premix 360 MG/200 ML BAG IVC SCH (18:00)
--- NOTE | 2017-03-22 18:54 | Electrocardiograph Report ---
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
--- NOTE | 2017-03-22 19:06 | Electrocardiograph Report ---
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
[2017-03-22] MEDS: Mirtazapine 15 MG TABLET PO SCH (22:03)
[2017-03-22] MEDS: Melatonin 3 MG TABLET PO SCH (22:03)
[2017-03-23] MEDS: *HR* Morphine Sulfate SR (12 HR) 15 MG TABLET.ER PO PRN ×2 (00:20→09:15)
[2017-03-23] MEDS: *HR* OxyCODONE Immed Rel 5 MG TABLET PO PRN ×2 (00:21→19:28)
[2017-03-23] MEDS: *HR* Metoprolol 5 MG/5 ML VIAL IVP PRN (01:21)
[2017-03-23] MEDS: Amiodarone Premix 360 MG/200 ML BAG IVC SCH ×2 (05:11→16:02)
[2017-03-23] MEDS: 0.9 % Sodium Chloride 1,000 ML IVC SCH ×2 (05:11→16:00)
[2017-03-23 05:47] LABS: Hematocrit 23.5 % (37.5-50.1); Mean Corpuscular Hemoglobin 29.9 pg (28.0-33.3); Mean Corpuscular Volume 87.7 fL (83.0-100.0); Mean Platelet Volume 9.3 fL (9.4-12.4); Platelet Count 378 K/mcL (140-400); Red Blood Count 2.68 M/mcL (4.19-5.50); Red Cell Distribution Width 17.3 % (11.5-14.5)
[2017-03-23] MEDS: *HR* Heparin 5,000 UNIT/ML VIAL SQ SCH ×2 (05:54→19:24)
[2017-03-23 06:00] LABS: BUN/Creatinine Ratio 22 (6-26); Blood Urea Nitrogen 16 mg/dL (8-26); Calcium 8.1 mg/dL (8.6-10.8); Carbon Dioxide 19 mEq/L (19-29); Chloride 105 mEq/L (98-109); Glucose 114 mg/dL (70-99); Magnesium 1.3 mg/dL (1.6-2.6); Osmolality,Calculated 278 (280-300); Potassium 3.1 mEq/L (3.5-4.5); Sodium 133 mEq/L (136-145); eGFR For African Americans > 60 (> 60); eGFR For Non-African Americans > 60 (> 60)
--- NOTE | 2017-03-23 09:07 | Internal Med Progress Note ---
Date of Encounter: 03/23/17 Time of Encounter: 09:05 - Assessment and plan (1) Supraventricular tachycardia Current Visit: Yes Status: Acute Assessment and plan: Improving On amio drip cardiology eval noted, continue current management (2) Seizure Current Visit: Yes Status: Chronic Assessment and plan: hx of seizure on Dilantin, will continue. (3) PAF (paroxysmal atrial fibrillation) Current Visit: Yes Status: Chronic Assessment and plan: Not on A/C due to hx of GIB and CA (4) Hypothyroid Current Visit: Yes Status: Chronic Assessment and plan: Continue synthroid, TSH WNL Qualifiers: Hypothyroidism type: unspecified Qualified Code(s): E03.9 - Hypothyroidism , unspecified (5) Coronary artery disease Current Visit: Yes Status: Chronic Assessment and plan: Status post 2 vessel CABG in 2007 with previous PCI. Continue aspirin, statin, beta yadi. Troponin of 0.05 likely from demand ischemia from SVT. Qualifiers: Coronary Disease-Associated Artery/Lesion type: bypass graft, autologous vein Associated angina: without angina Qualified Code(s): I25.810 - Atherosclerosis of coronary artery bypass graft(s) without angina pectoris (6) Hypokalemia Current Visit: Yes Status: Acute Assessment and plan: Replaced, continue to monitor (7) Leukocytosis Current Visit: Yes Status: Acute Assessment and plan: Check UA Rpt CXR-unremarkable, no infiltrates Patient with no new symptoms Will initiate a/b if UA shows UTI, otherwise, continue to monitor Qualifiers: Leukocytosis type: unspecified Qualified Code(s): D72.829 - Elevated white blood cell count, unspecified (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 Assessment and plan: Continue home meds - Subjective Interval history: Seen and evaluated at bedside with his son and RN patient reports significant improvement in all his symptms Denies new complains, chest pain, cough or dysuria His chart review shows improved HR, other VSS New leukocytosis, hypokalemia - Constitutional Vitals: Temp Pulse Resp BP Pulse Ox 98.4 F 93 12 105/48 96 03/23/17 07:11 03/23/17 07:29 03/23/17 07:11 03/23/17 07:29 03/23/17 07:29 General appearance: Present: A&O X 3, pleasant, no acute distress, answers questions appropriately - Head Head exam: Present: atraumatic, normocephalic - Eye Eye exam: Present: PERRL, conjuntiva pink, sclera anicteric Pupils: Present: PERRL - Neck Neck exam general surgery: Present: supple, trachea midline. Absent: lymphadenopathy Additional comments: LEft chest port-a-cath - Respiratory Respiratory exam: Present: CTAB. Absent: accessory muscle use, rales, rhonchi, wheezes - Cardiovascular Cardiovascular exam: Present: RRR, +S1, +S2. Absent: diastolic murmur, gallop, rubs, systolic murmur - GI/Abdominal GI/Abdominal exam: Present: normal bowel sounds, soft, no peritoneal signs. Absent: distended, tenderness - Extremities Exam Extremities exam: Present: warm, radial pulses palpable and symetrical. Absent : calf tenderness, cyanotic, pedal edema - Neurological Exam Neurological exam: Present: alert, CN II-XII intact, oriented X3, no focal deficits. Absent: pronater drift, facial droop, speech deficit - Skin Skin exam: Present: dry, intact Internal Medicine: Result - Labs CBC & Chem 7: 03/23/17 05:00 03/23/17 05:00 Labs: Short CBC 03/23/17 Range/Units 05:00 WBC 17.3 H D (4.3-11.1) K/mcL Hgb 8.0 L (12.9-16.9) g/dL Hct 23.5 L (37.5-50.1) % Plt Count 378 (140-400) K/mcL BMP 03/23/17 05:00 Sodium 133 L Potassium 3.1 L Chloride 105 Carbon Dioxide 19 BUN 16 Creatinine 0.72 Glucose 114 H Calcium 8.1 L - Impressions Impressions Chest X-Ray 03/23/17 08:26 IMPRESSION: 1. No significant change without acute abnormality. D/ / Tc Grace MD / Tc Grace MD Interpreting Provider: Tc Grace MD Consult Discharge Plan - Plan Referrals: Musa Lewis MD [Primary Care Provider] - 04/01/17 10:30 am
[2017-03-23] MEDS: Multivit/Ca/Min/Fe/FA 1 TAB TABLET PO SCH (09:15)
[2017-03-23] MEDS: Aspirin Enteric Coated 81 MG Tablet PO SCH (09:15)
[2017-03-23] MEDS: Triamcinolone Acet 0.1% CRM 15 GM TUBE TP SCH (09:18)
[2017-03-23] MEDS: Megestrol Acetate 400 MG/10 ML UDC PO SCH ×3 (09:19→10:31)
[2017-03-23] MEDS ORDERED: Potassium Chloride Elixir 20 MEQ/15 ML UDC PO ONE (09:33)
[2017-03-23] MEDS: RESVERATROL 100 MG PO SCH (09:56)
--- NOTE | 2017-03-23 10:05 | Electrocardiograph Report ---
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
--- NOTE | 2017-03-23 10:12 | Electrocardiograph Report ---
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
[2017-03-23 10:52] LABS: Bilirubin,Urine Negative (Negative); Blood,Urine Negative (Negative); Clarity,Urine Clear (Clear); Color,Urine Yellow (Yellow); Glucose,Urine (UA) Normal (Normal); Ketones,Urine Negative (Negative); Leukocyte Esterase,Urine Negative (Negative); Nitrite,Urine Negative (Negative); Protein,Urine Negative (Neg-Trace); Specific Gravity,Urine 1.016 (1.010-1.025); Urobilinogen,Urine Normal (Normal)
--- NOTE | 2017-03-23 11:43 | Cardiology Progress Note ---
Date of Encounter: 03/23/17 Time of Encounter: 11:40 Assessment and Plan (1) PSVT (paroxysmal supraventricular tachycardia) Current Visit: Yes Status: Acute PSVT in setting of gastric cancer/weight loss. Very frequent throughout stay, even last night. BP marginal. Amiodarone started yesterday. Arrhythmias seem improved this AM. BP 100s systolic. Recommend continue amiodarone drip until IV loading complete, then 200 mg daily. Start low dose BB to help suppress PSVT if BP tolerates. Overall health seems to be declining, which is contributing to cardiac ectopy. Discussed this with patient and encouraged him to consider his wishes regarding aggressiveness of care if things continue to decline. Discussion w patient/family: The assessment and plan as outlined above was discussed with the patient and/or family members who expressed understanding and agreement. All questions were answered. Thank you for involving us in the care of your patient. Please call with any questions. Subjective Principal diagnosis: PSVT Interval history: 82 year old with metastatic gastric cancer and PSVT. Frequent PSVT since admission. BP marginal, so placed on amiodarone yesterday. PSVT noted overnight, but sinus with frequent PACs much of this morning. Difficulty taking pills this morning. 50 pound weight loss over last few months. Objective Vital Signs, Last 4 Hours Pulse 03/23/17 10:47 71 General: Conversant, No Apparent Distress HEENT: Atraumatic, Normocephaly, Mucus Membranes Moist Neck: No JVD, Normal carotid pulses Cardiac: Other (Regular with ectopy. ) Lungs: Normal Breath Sounds, Other (Shallow, but clear) Neuro: Alert and responsive, No focal deficits noted Abdomen: Soft, Non-Tender Skin: No rashes noted on visualized skin Musculoskeletal: No Chest Wall Tenderness Extremities: No Clubbing, No Cyanosis, No Edema Results 03/23/17 05:00 03/23/17 05:00 Lab Results 03/23/17 03/23/17 05:00 05:00 WBC 17.3 H D Hgb 8.0 L Hct 23.5 L Plt Count 378 Sodium 133 L Potassium 3.1 L Chloride 105 Carbon Dioxide 19 BUN 16 Creatinine 0.72 Glucose 114 H Calcium 8.1 L Magnesium 1.3 L - Imaging and Cardiology Echo: report reviewed Consult Discharge Plan - Plan Referrals: Musa Lewis MD [Primary Care Provider] - 04/01/17 10:30 am
--- NOTE | 2017-03-23 12:56 | Electrocardiograph Report ---
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
[2017-03-23] MEDS: Metoprolol XL (24 HR) Succ 25 MG TAB.ER.24H PO SCH (13:56)
[2017-03-23] MEDS ORDERED: *HR* Adenosine 6 MG/2 ML VIAL IVP ONE ×2 (14:47→14:53)
--- NOTE | 2017-03-23 16:02 | Palliative - Consult Note ---
Date of Encounter: 03/23/17 Time of Encounter: 15:58 - Assessment and Plan (1) Counseling regarding advanced care planning and goals of care Current Visit: Yes Status: Acute Assessment and plan: Met with patient and his family (Spouse-Tariq, son-Moises) regarding goals of care. Discussed chronic disease management including cancer treatment and cardiac care. Patient and family was able to summarize recommendations and treatment plan up to this point. Advanced directives have been discussed, and patient continues to confirm DNR comfort care arrest CODE STATUS. Mr. Llamas states he is very spiritual man and is "at peace". Plan for follow-up family meeting tomorrow to discuss long-term goals of care following hospitalization. (2) Cancer associated pain Current Visit: Yes Status: Chronic Assessment and plan: Mr. Llamas reports adequate pain control with current pain regimen of MS Contin 15 mg every 8 hours with oxycodone as needed for breakthrough pain. He currently denies pain. Continue with current treatment plan. (3) Supraventricular tachycardia Current Visit: Yes Status: Acute Assessment and plan: Cardiology consult (4) Gastric cancer Current Visit: Yes Status: Chronic Assessment and plan: Follows with oncology as an outpatient. Qualifiers: Malignant neoplasm of stomach location: fundus of stomach Qualified Code(s) : C16.1 - Malignant neoplasm of fundus of stomach Palliative-CN HPI - Data of Consult Patient: new to practice Consult date: 03/23/17 Requesting Physician: Raúl Sadler MD Primary Care Provider: Musa Lewis MD - Consult Narrative Palliative Care/Comfort Measures: Palliative care Reason for consult: Goals of Care History of present illness: Mr. Llamas is a 82 year old male patient admitted to [facility] with a chief complaint of progressive weakness the week prior to admission. Workup in the emergency department revealed SVT. Mr. Llamas was treated with adenosine with initial success, but his rhythm returned to SVT and the adenosine had to be repeated. He was admitted to the hospital for further workup and care. While on the telemetry floor he had repeated episodes of SVT. Cardiology had been consulted. He was transitioned to 2 N. and started on an amiodarone drip. The palliative care team was consulted given his comorbidities. 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 He has been receiving treatment at the [facility]. He is on chemotherapy, 5-FU plus pertuzumab plus trastuzumab regimen. [facility] home health nurses follow him for home infusions. Mr. Llamas resides in his own home with his spouse Tariq. He is ambulatory with the assistance of a walker. His maximum ambulatory distance is approximately 50 feet. He reports tolerating chemotherapy "well". Side effects include generalized weakness lasting 7-10 days post treatment. His appetite has been very poor over the past few months resulting in a 50 pound weight loss over a six-month period, with the majority being in the past 2 months. Mr. Llamas follows with a dietitian at the cancer center, and drinks Ensure at home up to 3 times a day. His spouse reports recent end-of-life discussions. Mr. Llamas refers to himself as "at peace". He supports a DNR comfort care arrest CODE STATUS. In regards to pain, Mr. Llamas has chronic pain related to degenerative joint disease. Oncology services has been providing opioid therapy the form of MS Contin 15 mg 3 times a day with oxycodone every 2 hours as needed. He reports improved pain control and quality of life at the current dose of medications. Rates current pain 0 out of 10. Mr. Llamas utilizes laxative therapy for opioid induced constipation. Last BM was yesterday. CC: Raúl Sadler MD Past Med Surg Social Fam HX - Past Medical History Source: patient, old records reviewed, obtained from family Medical history: atrial fibrillation, cancer, coronary artery disease, hypertension, myocardial infarction, seizures, SVT, other Psychiatric history: no psych history - Past Surgical History Surgical History: appendectomy, cholecystectomy, coronary bypass (CABG) - Social History Smoking Status: Never smoker Smokeless Tobacco Status: No Alcohol use: none Drug use: none Current living situation: Home, With Family Activity Level: Uses cane/walker - Family History Mother History Unknown: Yes Living Status: Father History Unknown: Yes Living Status: Medications and Allergies Amlodipine Besylate 10 mg PO DAILY 04/16/16 [History] Atorvastatin [Lipitor] 40 mg PO HS 04/16/16 [History] Carvedilol 3.125 mg PO BID 04/16/16 [History] Diltiazem HCl [Tiazac] 120 mg PO DAILY 04/16/16 [History] DiphenhydraMINE [Benadryl] 25 mg PO HS 04/16/16 [History] Levothyroxine [Synthroid] 88 mcg PO QAM 04/16/16 [History] Loratadine [Claritin] 10 mg PO DAILY PRN 04/16/16 [History] Melatonin 6 mg PO HS 04/16/16 [History] Multivitamin [Multi-Day Vitamins] 1 each PO DAILY 04/16/16 [History] Omeprazole [PriLOSEC] 40 mg PO BID 04/16/16 [History] Phenytoin ER [Dilantin ER] 200 mg PO TID 04/16/16 [History] Resveratrol 100 mg PO DAILY 04/16/16 [History] Terazosin HCl 4 mg PO HS 04/16/16 [History] Triamcinolone Acetonide 1 appl TP DAILY 04/16/16 [History] Valsartan [Diovan] 320 mg PO DAILY 04/16/16 [History] Lidocaine/Prilocaine CREAM [Emla] 1 appl TP AD PRN #1 tube 05/03/16 [Rx] Magic Mouthwash 5 - 10 ml PO TID PRN #480 ml 06/20/16 [Rx] Aspirin [Lo-Dose Aspirin EC] 81 mg PO DAILY 07/06/16 [History] Mirtazapine [Remeron] 15 mg PO HS #30 tablet 08/22/16 [Rx] Docusate Sodium [Colace] 100 mg PO BID #60 capsule 11/13/16 [Rx] Furosemide [Lasix] 40 mg PO DAILY PRN #30 tablet 11/29/16 [Rx] Megestrol Acetate [Megace] 10 ml PO QAM #300 mls 12/04/16 [Rx] Oxycodone HCl [Oxaydo] 5 mg PO Q2H PRN #90 tablet.orl 02/12/17 [Rx] Prochlorperazine Maleate [Compazine] 10 mg PO Q6HR PRN #60 tablet 02/28/17 [Rx] Clopidogrel [Plavix] 75 mg PO DAILY 03/21/17 [History] Morphine Sulfate SR (12 HR) [MS Contin] 15 mg PO Q8HR PRN 03/21/17 [History] Sennosides [Senna] 17.2 mg PO HS PRN 03/21/17 [History] Tizanidine HCl 2 mg PO HS PRN 03/21/17 [History] Allergies No Known Allergies Allergy (Verified 03/21/17 14:54) - Constitutional Constitutional ROS PAL: decreased appetite, fatigue, weight loss (50# in 6 months) - EENT Eyes: no change in vision Ears: decreased hearing Ears, nose, mouth, throat: hoarseness, no sinus pain, no dysphagia, no mouth pain, no sore throat - Cardiovascular Cardiovascular ROS: dyspnea on exertion, irregular heart rhythm, leg edema, palpitations, rapid heart rate - Respiratory Respiratory: dyspnea on exertion, no cough, no dyspnea - Gastrointestinal Gastrointestinal: constipation (related to opioid therapy), no abdominal pain, no diarrhea, no nausea, no vomiting - Genitourinary Genitourinary ROS male: no difficulty urinating - Musculoskeletal Musculoskeletal ROS IM: muscle weakness - Integumentary ROS Integumentary: no skin ulcer, no unusual bruising - Neurological Neurological ROS: no confusion, no disequilibrium, no lack of coordination, no paresthesias - Psychiatric Psychiatric general PM: no anxiety Palliative Care-Exam - Constitutional Vitals: Temp Pulse Resp BP Pulse Ox 98.4 F 160 16 90/58 99 03/23/17 07:11 03/23/17 14:05 03/23/17 11:40 03/23/17 14:05 03/23/17 11:40 General appearance: Present: cooperative, no acute distress Exam: 82 year old male patient appearing age appropriate with apparent weight loss ( loss of subcutaneous fat). Alert and oriented with appropriate conversation. - Eye Eye exam: Present: EOMI Pupils: Present: PERRL - ENT ENT exam: Present: mucous membranes moist - Respiratory Respiratory exam: Present: CTAB. Absent: accessory muscle use, respiratory distress - Cardiovascular Cardiovascular exam: Present: RRR, tachycardia (SVT with a rate of 140) - GI/Abdominal Exam GI/Abdominal exam: Present: normal bowel sounds, soft. Absent: firm, guarding, tenderness - Rectal Rectal Exam: Present: deferred - Expanded Lower Extremities Exam Lower Leg exam: Present: swelling - Neurological Exam Neurological exam: Present: alert, oriented X3, no focal deficits, strengths equal and symetr throughout - Psychiatric Psychiatric exam: Absent: agitated, anxious - Skin Skin exam: Present: dry, warm Internal Medicine - CN: Reslt - Labs CBC & Chem 7: 03/23/17 05:00 03/23/17 05:00 Labs: Short CBC 03/23/17 Range/Units 05:00 WBC 17.3 H D (4.3-11.1) K/mcL Hgb 8.0 L (12.9-16.9) g/dL Hct 23.5 L (37.5-50.1) % Plt Count 378 (140-400) K/mcL BMP 03/23/17 05:00 Sodium 133 L Potassium 3.1 L Chloride 105 Carbon Dioxide 19 BUN 16 Creatinine 0.72 Glucose 114 H Calcium 8.1 L Urine 03/23/17 Range/Units 10:45 Urine Color Yellow (Yellow) Urine Clarity Clear (Clear) Urine pH 6.0 (5.0-8.0) pH Units Ur Specific [place] 1.016 (1.010-1.025) Urine Protein Negative (Neg-Trace) mg/dL Urine Glucose (UA) Normal (Normal) mg/dL - Impressions Impressions Chest X-Ray 03/23/17 08:26 IMPRESSION: 1. No significant change without acute abnormality. D/ / Tc Grace MD / Tc Grace MD Interpreting Provider: Tc Grace MD Consult Discharge Plan - Plan Referrals: Musa Lewis MD [Primary Care Provider] - 04/01/17 10:30 am Palliative Quality Palliative Quality: Screen for Code Status: Yes, Screen for Goals of Care: Yes, Screen for Pain: Yes, If Pain Regimen Started, Initiate Bowel Regimen: Yes, Screen for Nausea/Vomitting: Yes
[2017-03-23] MEDS ORDERED: Magnesium Sulfate 2 GM in D5% in Water 100 ML IVPB ONE (16:13)
[2017-03-23] MEDS: *HR* Morphine Sulfate SR (12 HR) 15 MG TABLET.ER PO SCH (16:31)
[2017-03-23] MEDS: Melatonin 3 MG TABLET PO SCH (21:07)
[2017-03-23] MEDS: Mirtazapine 15 MG TABLET PO SCH (21:07)
[2017-03-24] MEDS: *HR* Morphine Sulfate SR (12 HR) 15 MG TABLET.ER PO SCH ×3 (00:09→16:19)
[2017-03-24 05:02] LABS: Basophils % 0.1 %; Eosinophils # 0.2 K/mcL (0.0-0.6); Eosinophils % 2.2 %; Hematocrit 22.8 % (37.5-50.1); Hemoglobin 7.6 g/dL (12.9-16.9); Immature Granulocytes % 0.3 % (0-4); Lymphocytes # 0.6 K/mcL (0.6-4.6); Lymphocytes % 5.9 %; Mean Corpuscular HGB Conc 33.3 g/dL (31.6-35.5); Mean Corpuscular Hemoglobin 29.3 pg (28.0-33.3); Mean Platelet Volume 8.9 fL (9.4-12.4); Monocytes # 0.9 K/mcL (0.0-1.3); Monocytes % 9.3 %; Neutrophils # 7.6 K/mcL (1.6-8.9); Platelet Count 317 K/mcL (140-400); Red Blood Count 2.59 M/mcL (4.19-5.50); Red Cell Distribution Width 17.4 % (11.5-14.5); Segmented Neutrophils % 82.2 %
[2017-03-24] MEDS: *HR* Heparin 5,000 UNIT/ML VIAL SQ SCH ×2 (05:05→17:38)
[2017-03-24] MEDS: Amiodarone Premix 360 MG/200 ML BAG IVC SCH ×2 (05:05→17:40)
[2017-03-24 05:14] LABS: BUN/Creatinine Ratio 19 (6-26); Blood Urea Nitrogen 13 mg/dL (8-26); Calcium 8.1 mg/dL (8.6-10.8); Carbon Dioxide 20 mEq/L (19-29); Chloride 107 mEq/L (98-109); Glucose 97 mg/dL (70-99); Osmolality,Calculated 278 (280-300); Potassium 3.4 mEq/L (3.5-4.5); Sodium 134 mEq/L (136-145); eGFR For African Americans > 60 (> 60); eGFR For Non-African Americans > 60 (> 60)
[2017-03-24] MEDS ORDERED: *HR* Adenosine 6 MG/2 ML VIAL IVP ONE ×2 (07:15→07:30)
[2017-03-24] MEDS: 0.9 % Sodium Chloride 1,000 ML IVC SCH ×2 (07:41→14:32)
[2017-03-24] MEDS ORDERED: Potassium Chloride Elixir 20 MEQ/15 ML UDC PO ONE (08:00)
[2017-03-24] MEDS: *HR* Metoprolol 5 MG/5 ML VIAL IVP PRN (08:15)
--- NOTE | 2017-03-24 09:18 | Cardiology Progress Note ---
Date of Encounter: 03/24/17 Time of Encounter: 09:16 Assessment and Plan (1) PSVT (paroxysmal supraventricular tachycardia) Current Visit: Yes Status: Acute PSVT in setting of gastric cancer/weight loss. Very frequent throughout stay. BP marginal. Amiodarone started a few days ago. BB started yeterday - BP stable. PSVT continues to reoccur. Required adenosine again this am as well as IV lopressor. Will try to titrate BB. Consult EP for further evaluation. Overall health seems to be declining, which is contributing to cardiac ectopy. Discussed this with patient and encouraged him to consider his wishes regarding aggressiveness of care if things continue to decline. Discussion w patient/family: The assessment and plan as outlined above was discussed with the patient and/or family members who expressed understanding and agreement. All questions were answered. Thank you for involving us in the care of your patient. Please call with any questions. Subjective Principal diagnosis: PSVT Interval history: 82 year old with metastatic gastric cancer and PSVT. Difficulty taking pills this morning. 50 pound weight loss over last few months. Frequent PSVT since admission. Despite amiodarone and addition of PO BB yesterday, continues to have frequent periods of SVT. This morning given adenosine followed by 2.5 mg lopressor IV x1. Objective Vital Signs, Last 4 Hours Pulse BP Pulse Ox 03/24/17 08:38 73 101/56 76 03/24/17 08:15 161 96 03/24/17 08:09 157 106/60 97 03/24/17 07:46 96 103/51 96 03/24/17 07:25 85 112/52 95 03/24/17 07:10 182 87/51 94 General: Conversant, Other (Frail appearing. ) HEENT: Atraumatic, Normocephaly, Mucus Membranes Moist Neck: No JVD, Normal carotid pulses Cardiac: Other (Tachycardic this morning, then regular in 70s after IV lopressor ) Lungs: Normal Breath Sounds, No Wheeze, Rales, Rhonchi Neuro: Alert and responsive, No focal deficits noted Abdomen: Soft (z) Skin: No rashes noted on visualized skin Musculoskeletal: No Chest Wall Tenderness Extremities: No Clubbing, No Cyanosis, No Edema Results 03/24/17 04:54 03/24/17 04:54 Lab Results 03/24/17 03/24/17 04:54 04:54 WBC 9.3 Hgb 7.6 L Hct 22.8 L Plt Count 317 Sodium 134 L Potassium 3.4 L Chloride 107 Carbon Dioxide 20 BUN 13 Creatinine 0.68 L Glucose 97 Calcium 8.1 L - Imaging and Cardiology Echo: report reviewed - EKG Interpretation EKG results cardiology: personally reviewed Consult Discharge Plan - Plan Referrals: Musa Lewis MD [Primary Care Provider] - 04/01/17 10:30 am
[2017-03-24] MEDS: Aspirin Enteric Coated 81 MG Tablet PO SCH (09:28)
[2017-03-24] MEDS: Megestrol Acetate 400 MG/10 ML UDC PO SCH (09:29)
[2017-03-24] MEDS: Multivit/Ca/Min/Fe/FA 1 TAB TABLET PO SCH (09:31)
[2017-03-24] MEDS: RESVERATROL 100 MG PO SCH (09:31)
[2017-03-24] MEDS: Metoprolol XL (24 HR) Succ 25 MG TAB.ER.24H PO SCH ×2 (09:39→21:32)
--- NOTE | 2017-03-24 10:08 | Internal Med Progress Note ---
Date of Encounter: 03/24/17 Time of Encounter: 10:08 - Assessment and plan (1) Supraventricular tachycardia Current Visit: Yes Status: Acute Assessment and plan: HR elevated and sustained at 140-150 On amiodarone drip, receiving extra doses of BB and adenosine BP is marginal Repeat electrolytes by peripheral vein, as all his labs look diluted, and replace prn Cardiology following, for EP eval (2) Seizure Current Visit: Yes Status: Chronic Assessment and plan: hx of seizure on Dilantin, will continue. (3) PAF (paroxysmal atrial fibrillation) Current Visit: Yes Status: Chronic Assessment and plan: Not on A/C due to hx of GIB and CA (4) Hypothyroid Current Visit: Yes Status: Chronic Assessment and plan: Continue synthroid, TSH WNL Qualifiers: Hypothyroidism type: unspecified Qualified Code(s): E03.9 - Hypothyroidism , unspecified (5) Coronary artery disease Current Visit: Yes Status: Chronic Assessment and plan: Status post 2 vessel CABG in 2007 with previous PCI. Continue aspirin, statin, beta yadi. Troponin of 0.05 likely from demand ischemia from SVT. Qualifiers: Coronary Disease-Associated Artery/Lesion type: bypass graft, autologous vein Associated angina: without angina Qualified Code(s): I25.810 - Atherosclerosis of coronary artery bypass graft(s) without angina pectoris (6) Hypokalemia Current Visit: Yes Status: Resolved Assessment and plan: Resolved, continue to monitor (7) Leukocytosis Current Visit: Yes Status: Acute Assessment and plan: UA and rpt CXR unremarkable Repeat CBC WNL Patient with no new symptoms Qualifiers: Leukocytosis type: unspecified Qualified Code(s): D72.829 - Elevated white blood cell count, unspecified (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 Assessment and plan: Continue home meds (9) JACK (iron deficiency anemia) Current Visit: Yes Status: Chronic Assessment and plan: Chronic, stable Qualifiers: Iron deficiency anemia type: chronic blood loss Qualified Code(s): D50.0 - Iron deficiency anemia secondary to blood loss (chronic) - Subjective Interval history: Seen and evaluated at bedside with his son and RN no new complains, HR continues to be uncontrolled cardiology folowing Patient still on amiodarone drip Blood work looked dilutional, repeat STAT from peripheral vein - Constitutional Vitals: Temp Pulse Resp BP Pulse Ox 98.6 F 73 14 101/56 76 03/24/17 03:50 03/24/17 08:38 03/24/17 03:50 03/24/17 08:38 03/24/17 08:38 General appearance: Present: A&O X 3, pleasant, no acute distress, answers questions appropriately - Head Head exam: Present: atraumatic, normocephalic - Eye Eye exam: Present: PERRL, conjuntiva pink, sclera anicteric Pupils: Present: PERRL - Neck Neck exam general surgery: Present: supple, trachea midline. Absent: lymphadenopathy - Respiratory Respiratory exam: Present: CTAB. Absent: accessory muscle use, rales, rhonchi, wheezes - Cardiovascular Cardiovascular exam: Present: irregular rhythm, +S1, +S2, tachycardia. Absent: diastolic murmur, gallop, rubs, systolic murmur - GI/Abdominal GI/Abdominal exam: Present: normal bowel sounds, soft, no peritoneal signs. Absent: distended, tenderness - Extremities Exam Extremities exam: Present: warm, radial pulses palpable and symetrical. Absent : calf tenderness, cyanotic, pedal edema - Neurological Exam Neurological exam: Present: alert, CN II-XII intact, oriented X3, no focal deficits. Absent: pronater drift, facial droop, speech deficit - Skin Skin exam: Present: dry Internal Medicine: Result - Labs CBC & Chem 7: 03/24/17 10:35 03/24/17 10:35 Labs: Short CBC 03/24/17 Range/Units 04:54 WBC 9.3 (4.3-11.1) K/mcL Hgb 7.6 L (12.9-16.9) g/dL Hct 22.8 L (37.5-50.1) % Plt Count 317 (140-400) K/mcL Neutrophils # 7.6 (1.6-8.9) K/mcL BMP 03/24/17 04:54 Sodium 134 L Potassium 3.4 L Chloride 107 Carbon Dioxide 20 BUN 13 Creatinine 0.68 L Glucose 97 Calcium 8.1 L Urine 03/23/17 Range/Units 10:45 Urine Color Yellow (Yellow) Urine Clarity Clear (Clear) Urine pH 6.0 (5.0-8.0) pH Units Ur Specific [place] 1.016 (1.010-1.025) Urine Protein Negative (Neg-Trace) mg/dL Urine Glucose (UA) Normal (Normal) mg/dL Consult Discharge Plan - Plan Referrals: Musa Lewis MD [Primary Care Provider] - 04/01/17 10:30 am
[2017-03-24 10:47] LABS: Basophils % 0.1 %; Eosinophils # 0.2 K/mcL (0.0-0.6); Hematocrit 25.4 % (37.5-50.1); Hemoglobin 8.4 g/dL (12.9-16.9); Immature Granulocytes % 0.3 % (0-4); Lymphocytes # 0.4 K/mcL (0.6-4.6); Lymphocytes % 3.9 %; Mean Corpuscular HGB Conc 33.1 g/dL (31.6-35.5); Mean Corpuscular Hemoglobin 29.4 pg (28.0-33.3); Mean Corpuscular Volume 88.8 fL (83.0-100.0); Mean Platelet Volume 8.8 fL (9.4-12.4); Monocytes # 0.8 K/mcL (0.0-1.3); Monocytes % 8.2 %; Neutrophils # 8.5 K/mcL (1.6-8.9); Platelet Count 310 K/mcL (140-400); Red Blood Count 2.86 M/mcL (4.19-5.50); Red Cell Distribution Width 17.9 % (11.5-14.5); Segmented Neutrophils % 85.5 %
[2017-03-24 10:56] LABS: Alanine Aminotransferase 86 Units/L (0-55); Albumin 2.3 g/dL (3.5-5.0); Albumin/Globulin Ratio 0.6 (1.1-2.2); Alkaline Phosphatase 345 Units/L (38-126); Aspartate Amino Transferase 90 Units/L (5-34); BUN/Creatinine Ratio 18 (6-26); Bilirubin,Total 0.4 mg/dL (0.2-1.2); Blood Urea Nitrogen 13 mg/dL (8-26); Calcium 8.2 mg/dL (8.6-10.8); Carbon Dioxide 17 mEq/L (19-29); Chloride 108 mEq/L (98-109); Globulin 3.7 g/dL (2.4-3.5); Glucose 120 mg/dL (70-99); Osmolality,Calculated 279 (280-300); Potassium 4.1 mEq/L (3.5-4.5); Sodium 134 mEq/L (136-145); eGFR For African Americans > 60 (> 60); eGFR For Non-African Americans > 60 (> 60)
[2017-03-24] MEDS ORDERED: 0.9 % Sodium Chloride 500 ML IVC ONE (11:05)
[2017-03-24] MEDS: Triamcinolone Acet 0.1% CRM 15 GM TUBE TP SCH (11:50)
--- NOTE | 2017-03-24 14:01 | Palliative Progress Note ---
Date of Encounter: 03/24/17 Time of Encounter: 12:00 - Assessment and plan (1) Cancer associated pain Current Visit: Yes Status: Chronic Assessment and plan: Continue with current dose of MS Contin 15mg every 8 hours with oxycodone for breakthrough pain as per home regimen. (2) Counseling regarding advanced care planning and goals of care Current Visit: Yes Status: Acute Assessment and plan: Goals of care discussion with the patient and his spouse-Tariq, and son-Moises. Patient and family was able to summarize events over the past 24 hours and the recommendation of cardiology. Discussed overal goal of care pertaining to cardiac care and cancer treatment. Reviewed comfort options including hospice care. Patient and family attentive and participating in conversation with appropriate questions. Goals pending evaluation from utilization specialist. (3) Supraventricular tachycardia Current Visit: Yes Status: Acute Assessment and plan: Cardiology following. Ship Pilot Dispatcher evaluation pending. (4) Gastric cancer Current Visit: Yes Status: Chronic Assessment and plan: Follows with oncology as an outpatient Qualifiers: Malignant neoplasm of stomach location: fundus of stomach Qualified Code(s) : C16.1 - Malignant neoplasm of fundus of stomach - Time Spent With Patient Total time spent is greater than 50% in coordination of care (as documented) at patient's floor/unit and/or counseling patient: - Subjective Interval history: Mr. Llamas is lying in bed with family at bedside. He denies pain or shortness of breath. Events of the morning noted. Mr. Llamas experienced multiple episodes of SVT requiring adenosine and lopressor for treatment. Evaluation from utilization specialist pending. - Constitutional Vitals: Abnormal lab results RBC 2.86 M/mcL (4.19-5.50) L 03/24/17 10:35 Hgb 8.4 g/dL (12.9-16.9) L 03/24/17 10:35 Hct 25.4 % (37.5-50.1) L 03/24/17 10:35 RDW 17.9 % (11.5-14.5) H 03/24/17 10:35 MPV 8.8 fL (9.4-12.4) L 03/24/17 10:35 Lymphocytes # 0.4 K/mcL (0.6-4.6) L 03/24/17 10:35 Sodium 134 mEq/L (136-145) L 03/24/17 10:35 Carbon Dioxide 17 mEq/L (19-29) L 03/24/17 10:35 Glucose 120 mg/dL (70-99) H 03/24/17 10:35 Calculated Osmolality 279 (280-300) L 03/24/17 10:35 Calcium 8.2 mg/dL (8.6-10.8) L 03/24/17 10:35 AST 90 Units/L (5-34) H 03/24/17 10:35 ALT 86 Units/L (0-55) H 03/24/17 10:35 Alkaline Phosphatase 345 Units/L (38-126) H 03/24/17 10:35 Troponin I 0.05 ng/mL (0-0.03) H* 03/21/17 15:36 Albumin 2.3 g/dL (3.5-5.0) L 03/24/17 10:35 Globulin 3.7 g/dL (2.4-3.5) H 03/24/17 10:35 Albumin/Globulin Ratio 0.6 (1.1-2.2) L 03/24/17 10:35 General appearance: Present: cooperative, no acute distress - ENT ENT exam: Present: mucous membranes dry - Respiratory Respiratory exam: Present: decreased breath sounds. Absent: accessory muscle use, respiratory distress - Cardiovascular Cardiovascular exam: Present: RRR - GI/Abdominal GI/Abdominal exam: Present: normal bowel sounds, soft. Absent: tenderness - Extremities Exam Extremities exam: Present: pedal edema - Neurological Exam Neurological exam: Present: alert, oriented X3, no focal deficits, strengths equal and symetr throughout - Psychiatric Psychiatric exam: Absent: agitated, anxious - Skin Skin exam: Present: dry, warm Palliative Quality Palliative Quality: Screen for Code Status: Yes, Screen for Goals of Care: Yes, Screen for Pain: Yes, If Pain Regimen Started, Initiate Bowel Regimen: Yes, Screen for Nausea/Vomitting: Yes - Labs CBC & Chem 7: 03/24/17 10:35 03/24/17 10:35 Labs: Laboratory Results - last 24 hr 03/24/17 03/24/17 03/24/17 04:54 04:54 10:35 WBC 9.3 10.0 RBC 2.59 L 2.86 L Hgb 7.6 L 8.4 L Hct 22.8 L 25.4 L MCV 88.0 88.8 MCH 29.3 29.4 MCHC 33.3 33.1 RDW 17.4 H 17.9 H Plt Count 317 310 MPV 8.9 L 8.8 L Immature Gran % 0.3 0.3 Seg Neutrophils % 82.2 85.5 Lymphocytes % 5.9 3.9 Monocytes % 9.3 8.2 Eosinophils % 2.2 2.0 Basophils % 0.1 0.1 Neutrophils # 7.6 8.5 Lymphocytes # 0.6 0.4 L Monocytes # 0.9 0.8 Eosinophils # 0.2 0.2 Basophils # 0.0 0.0 Sodium 134 L Potassium 3.4 L Chloride 107 Carbon Dioxide 20 BUN 13 Creatinine 0.68 L Est GFR ( Amer) > 60 Est GFR (Non-Af Amer) > 60 BUN/Creatinine Ratio 19 Glucose 97 Calculated Osmolality 278 L Calcium 8.1 L Magnesium Total Bilirubin AST ALT Alkaline Phosphatase Serum Total Protein Albumin Globulin Albumin/Globulin Ratio Blood Type Antibody Screen 03/24/17 03/24/17 03/24/17 10:35 10:35 10:35 WBC RBC Hgb Hct MCV MCH MCHC RDW Plt Count MPV Immature Gran % Seg Neutrophils % Lymphocytes % Monocytes % Eosinophils % Basophils % Neutrophils # Lymphocytes # Monocytes # Eosinophils # Basophils # Sodium 134 L Potassium 4.1 4.0 Chloride 108 Carbon Dioxide 17 L BUN 13 Creatinine 0.72 Est GFR ( Amer) > 60 Est GFR (Non-Af Amer) > 60 BUN/Creatinine Ratio 18 Glucose 120 H Calculated Osmolality 279 L Calcium 8.2 L Magnesium 2.0 Total Bilirubin 0.4 AST 90 H ALT 86 H Alkaline Phosphatase 345 H Serum Total Protein 6.0 Albumin 2.3 L Globulin 3.7 H Albumin/Globulin Ratio 0.6 L Blood Type A POSITIVE Antibody Screen NEGATIVE Consult Discharge Plan - Plan Referrals: Musa Lewis MD [Primary Care Provider] - 04/01/17 10:30 am
[2017-03-24] MEDS: *HR* OxyCODONE Immed Rel 5 MG TABLET PO PRN (14:21)
[2017-03-24] MEDS: Mirtazapine 15 MG TABLET PO SCH (21:32)
[2017-03-24] MEDS: Melatonin 3 MG TABLET PO SCH (21:32)
[2017-03-25] MEDS: *HR* Morphine Sulfate SR (12 HR) 15 MG TABLET.ER PO SCH ×3 (00:09→15:55)
[2017-03-25] MEDS: Amiodarone Premix 360 MG/200 ML BAG IVC SCH (03:27)
[2017-03-25] MEDS: 0.9 % Sodium Chloride 1,000 ML IVC SCH (03:28)
[2017-03-25 04:50] LABS: Basophils % 0.1 %; Eosinophils # 0.2 K/mcL (0.0-0.6); Eosinophils % 2.9 %; Hematocrit 22.5 % (37.5-50.1); Hemoglobin 7.4 g/dL (12.9-16.9); Immature Granulocytes % 0.5 % (0-4); Immature Platelets 1.7 % (1.1-6.1); Lymphocytes # 0.5 K/mcL (0.6-4.6); Lymphocytes % 6.7 %; Mean Corpuscular HGB Conc 32.9 g/dL (31.6-35.5); Mean Corpuscular Hemoglobin 29.2 pg (28.0-33.3); Mean Corpuscular Volume 88.9 fL (83.0-100.0); Mean Platelet Volume 8.9 fL (9.4-12.4); Monocytes # 0.6 K/mcL (0.0-1.3); Monocytes % 8.5 %; Neutrophils # 6.1 K/mcL (1.6-8.9); Platelet Count 348 K/mcL (140-400); Red Blood Count 2.53 M/mcL (4.19-5.50); Red Cell Distribution Width 17.9 % (11.5-14.5); Segmented Neutrophils % 81.3 %
[2017-03-25 05:06] LABS: BUN/Creatinine Ratio 16 (6-26); Blood Urea Nitrogen 9 mg/dL (8-26); Calcium 8.1 mg/dL (8.6-10.8); Carbon Dioxide 20 mEq/L (19-29); Chloride 108 mEq/L (98-109); Glucose 95 mg/dL (70-99); Magnesium 1.7 mg/dL (1.6-2.6); Osmolality,Calculated 276 (280-300); Potassium 3.8 mEq/L (3.5-4.5); Sodium 134 mEq/L (136-145); eGFR For African Americans > 60 (> 60); eGFR For Non-African Americans > 60 (> 60)
[2017-03-25] MEDS: *HR* Heparin 5,000 UNIT/ML VIAL SQ SCH ×2 (06:28→17:35)
[2017-03-25] MEDS: Megestrol Acetate 400 MG/10 ML UDC PO SCH (08:26)
[2017-03-25] MEDS: Aspirin Enteric Coated 81 MG Tablet PO SCH (08:26)
[2017-03-25] MEDS: Multivit/Ca/Min/Fe/FA 1 TAB TABLET PO SCH (08:27)
[2017-03-25] MEDS: Metoprolol XL (24 HR) Succ 25 MG TAB.ER.24H PO SCH ×2 (08:27→21:24)
[2017-03-25] MEDS: Triamcinolone Acet 0.1% CRM 15 GM TUBE TP SCH (08:27)
[2017-03-25] MEDS: RESVERATROL 100 MG PO SCH (08:27)
--- NOTE | 2017-03-25 11:03 | Internal Med Progress Note ---
Date of Encounter: 03/25/17 Time of Encounter: 10:59 - Assessment and plan (1) Supraventricular tachycardia Current Visit: Yes Status: Acute Assessment and plan: HR in the past 12 hrs have improved Possibly bernardino change amiodarone to po today BP is marginal, on IVF Cardiology following, awaiting decision on ablation (2) Seizure Current Visit: Yes Status: Chronic Assessment and plan: hx of seizure on Dilantin, will continue. (3) PAF (paroxysmal atrial fibrillation) Current Visit: Yes Status: Chronic Assessment and plan: Not on A/C due to hx of GIB and CA (4) Hypothyroid Current Visit: Yes Status: Chronic Assessment and plan: Continue synthroid, TSH WNL Qualifiers: Hypothyroidism type: unspecified Qualified Code(s): E03.9 - Hypothyroidism , unspecified (5) Coronary artery disease Current Visit: Yes Status: Chronic Assessment and plan: Status post 2 vessel CABG in 2007 with previous PCI. Continue aspirin, statin, beta yadi. Troponin of 0.05 likely from demand ischemia from SVT. Qualifiers: Coronary Disease-Associated Artery/Lesion type: bypass graft, autologous vein Associated angina: without angina Qualified Code(s): I25.810 - Atherosclerosis of coronary artery bypass graft(s) without angina pectoris (6) Hypokalemia Current Visit: Yes Status: Resolved Assessment and plan: Resolved, continue to monitor (7) Leukocytosis Current Visit: Yes Status: Resolved Assessment and plan: UA and rpt CXR unremarkable Resolved Repeat CBC WNL Patient with no new symptoms Qualifiers: Leukocytosis type: unspecified Qualified Code(s): D72.829 - Elevated white blood cell count, unspecified (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 Assessment and plan: Continue home meds (9) JACK (iron deficiency anemia) Current Visit: Yes Status: Chronic Assessment and plan: Chronic, stable Qualifiers: Iron deficiency anemia type: chronic blood loss Qualified Code(s): D50.0 - Iron deficiency anemia secondary to blood loss (chronic) - Subjective Interval history: Seen and evaluated at bedside with his son and RN no new complains, Labs are dilutional, repeat done yesterday was acceptable, again dilutional today HR continues to be uncontrolled cardiology following Awaiting EP eval/ablation - Constitutional Vitals: Temp Pulse Resp BP Pulse Ox 97.9 F 72 18 135/88 95 03/25/17 08:00 03/25/17 08:00 03/25/17 08:00 03/25/17 08:00 03/25/17 08:00 General appearance: Present: A&O X 3, pleasant, no acute distress, answers questions appropriately - Head Head exam: Present: atraumatic, normocephalic - Eye Eye exam: Present: PERRL, conjuntiva pink, sclera anicteric Pupils: Present: PERRL - Neck Neck exam general surgery: Present: supple, trachea midline. Absent: lymphadenopathy - Respiratory Respiratory exam: Present: CTAB. Absent: accessory muscle use, rales, rhonchi, wheezes - Cardiovascular Cardiovascular exam: Present: irregular rhythm, +S1, +S2, tachycardia. Absent: diastolic murmur, gallop, rubs, systolic murmur - GI/Abdominal GI/Abdominal exam: Present: normal bowel sounds, soft, no peritoneal signs. Absent: distended, tenderness - Extremities Exam Extremities exam: Present: warm, radial pulses palpable and symetrical. Absent : calf tenderness, cyanotic, pedal edema - Neurological Exam Neurological exam: Present: alert, CN II-XII intact, oriented X3, no focal deficits. Absent: pronater drift, facial droop, speech deficit - Skin Skin exam: Present: dry, intact Internal Medicine: Result - Labs CBC & Chem 7: 03/25/17 04:30 03/25/17 04:30 Labs: Short CBC 03/24/17 03/25/17 Range/Units 10:35 04:30 WBC 10.0 7.5 (4.3-11.1) K/mcL Hgb 8.4 L 7.4 L (12.9-16.9) g/dL Hct 25.4 L 22.5 L (37.5-50.1) % Plt Count 310 348 (140-400) K/mcL Neutrophils # 8.5 6.1 (1.6-8.9) K/mcL BMP 03/24/17 03/25/17 10:35 04:30 Sodium 134 L 134 L Potassium 4.1 3.8 Chloride 108 108 Carbon Dioxide 17 L 20 BUN 13 9 Creatinine 0.72 0.58 L Glucose 120 H 95 Calcium 8.2 L 8.1 L Liver Function 03/24/17 Range/Units 10:35 Total Bilirubin 0.4 (0.2-1.2) mg/dL AST 90 H (5-34) Units/L ALT 86 H (0-55) Units/L Alkaline Phosphatase 345 H (38-126) Units/L Albumin 2.3 L (3.5-5.0) g/dL Consult Discharge Plan - Plan Referrals: Musa Lewis MD [Primary Care Provider] - 04/01/17 10:30 am
--- NOTE | 2017-03-25 11:30 | Cardiology Progress Note ---
Date of Encounter: 03/25/17 Time of Encounter: 11:28 Assessment and Plan (1) PSVT (paroxysmal supraventricular tachycardia) Current Visit: Yes Status: Acute PSVT in setting of gastric cancer/weight loss. Very frequent throughout stay. less frequent SVT over last 12 hours. One 9 second run of SVT seen. Amiodarone started a few days ago. Toprol XL started 02/20/17. BP stable. Required adenosine again as well as IV lopressor 02/21/17. Electrophysiology consult was recommended. Will try to titrate BB. Increase toprol xl to 25 mg daily I will discuss converting amiodarone to oral with Dr. Freire. Overall health seems to be declining, which is contributing to cardiac ectopy. Palliative care is following. (2) PAF (paroxysmal atrial fibrillation) Current Visit: Yes Status: Chronic H/o PAF. He is currently not on anticoagulation d/t seizures and gastric cancer. (3) Coronary artery disease Current Visit: Yes Status: Chronic H/o 2V CABG in 2007 and previous PCI. Continue asa, statin, and beta yadi. He denies chest pain. Mild troponin at 0.05 from demand ischemia from SVT. Continue to monitor. Qualifiers: Coronary Disease-Associated Artery/Lesion type: bypass graft, autologous vein Associated angina: without angina Qualified Code(s): I25.810 - Atherosclerosis of coronary artery bypass graft(s) without angina pectoris Discussion w patient/family: The assessment and plan as outlined above was discussed with the patient and/or family members who expressed understanding and agreement. All questions were answered. Thank you for involving us in the care of your patient. Please call with any questions. Plan of care discussed with Dr. Freire. Subjective Principal diagnosis: PSVT Interval history: No new events overnight. He reports he is sleeping very well. Denies chest pain or palpitations. No significant SVT seen overnight. Objective Vital Signs, Last 4 Hours Temp Pulse Resp BP Pulse Ox 03/25/17 08:00 97.9 F 68 18 135/88 95 General: Conversant, No Apparent Distress HEENT: Atraumatic, Normocephaly, Mucus Membranes Moist Neck: No JVD, Normal carotid pulses Cardiac: Reg Rate and Rhythm, Normal S1 and S2, No Murmur Lungs: Normal Breath Sounds, No Wheeze, Rales, Rhonchi Neuro: Alert and responsive, No focal deficits noted Abdomen: Soft, Non-Tender Skin: No rashes noted on visualized skin Musculoskeletal: No Chest Wall Tenderness Extremities: Other (1+ edema in BLE. ) Results 03/25/17 04:30 03/25/17 04:30 Lab Results 03/25/17 03/25/17 04:30 04:30 WBC 7.5 Hgb 7.4 L Hct 22.5 L Plt Count 348 Sodium 134 L Potassium 3.8 Chloride 108 Carbon Dioxide 20 BUN 9 Creatinine 0.58 L Glucose 95 Calcium 8.1 L Magnesium 1.7 Consult Discharge Plan - Plan Referrals: Musa Lewis MD [Primary Care Provider] - 04/01/17 10:30 am
[2017-03-25] MEDS ORDERED: Metoprolol XL (24 HR) Succ 25 MG TAB.ER.24H PO ONE (11:40)
[2017-03-25] MEDS ORDERED: *HR* Metoprolol 5 MG/5 ML VIAL IVP PRN (14:08)
[2017-03-25] MEDS: *HR* Amiodarone 200 MG TABLET PO SCH (15:55)
[2017-03-25] MEDS: Melatonin 3 MG TABLET PO SCH (21:24)
[2017-03-25] MEDS: Mirtazapine 15 MG TABLET PO SCH (21:24)
[2017-03-26] MEDS: *HR* Morphine Sulfate SR (12 HR) 15 MG TABLET.ER PO SCH ×3 (00:12→16:04)
[2017-03-26] MEDS: *HR* Heparin 5,000 UNIT/ML VIAL SQ SCH ×2 (05:22→16:04)
[2017-03-26 05:34] LABS: Basophils % 0.3 %; Eosinophils # 0.3 K/mcL (0.0-0.6); Hematocrit 22.9 % (37.5-50.1); Hemoglobin 7.6 g/dL (12.9-16.9); Immature Granulocytes % 0.3 % (0-4); Lymphocytes # 0.5 K/mcL (0.6-4.6); Lymphocytes % 7.2 %; Mean Corpuscular HGB Conc 33.2 g/dL (31.6-35.5); Mean Corpuscular Hemoglobin 29.5 pg (28.0-33.3); Mean Corpuscular Volume 88.8 fL (83.0-100.0); Mean Platelet Volume 9.2 fL (9.4-12.4); Monocytes # 0.7 K/mcL (0.0-1.3); Monocytes % 9.7 %; Neutrophils # 5.3 K/mcL (1.6-8.9); Platelet Count 299 K/mcL (140-400); Red Blood Count 2.58 M/mcL (4.19-5.50); Red Cell Distribution Width 17.7 % (11.5-14.5); Segmented Neutrophils % 77.5 %
[2017-03-26] MEDS: Multivit/Ca/Min/Fe/FA 1 TAB TABLET PO SCH (09:02)
[2017-03-26] MEDS: Metoprolol XL (24 HR) Succ 25 MG TAB.ER.24H PO SCH ×2 (09:02→21:00)
[2017-03-26] MEDS: *HR* Amiodarone 200 MG TABLET PO SCH (09:03)
[2017-03-26] MEDS: Aspirin Enteric Coated 81 MG Tablet PO SCH (09:03)
[2017-03-26] MEDS: Megestrol Acetate 400 MG/10 ML UDC PO SCH (09:03)
[2017-03-26] MEDS: Triamcinolone Acet 0.1% CRM 15 GM TUBE TP SCH (09:04)
--- NOTE | 2017-03-26 10:59 | Internal Med Progress Note ---
Date of Encounter: 03/26/17 Time of Encounter: 10:55 - Assessment and plan (1) PSVT (paroxysmal supraventricular tachycardia) Current Visit: Yes Status: Acute Assessment and plan: HR now improved PO Amiodarone, BP stable, Cardiology following (2) PAF (paroxysmal atrial fibrillation) Current Visit: Yes Status: Chronic Assessment and plan: Not on A/C due to hx of GIB and CA (3) Hypothyroid Current Visit: Yes Status: Chronic Assessment and plan: Continue synthroid, TSH WNL Qualifiers: Hypothyroidism type: unspecified Qualified Code(s): E03.9 - Hypothyroidism , unspecified (4) JACK (iron deficiency anemia) Current Visit: Yes Status: Chronic Assessment and plan: Chronic, stable Qualifiers: Iron deficiency anemia type: chronic blood loss Qualified Code(s): D50.0 - Iron deficiency anemia secondary to blood loss (chronic) (5) Gastric cancer Current Visit: Yes Status: Chronic Assessment and plan: Metastatic gastric adenocarcinoma Undergoing chemotherapy currently on 5-FU On MS Contin 3 times a day and oxycodone IR for cancer associated pain followed by Dr. Stearns Palliative care following patient Qualifiers: Malignant neoplasm of stomach location: fundus of stomach Qualified Code(s) : C16.1 - Malignant neoplasm of fundus of stomach (6) Coronary artery disease Current Visit: Yes Status: Chronic Assessment and plan: Status post 2 vessel CABG in 2007 with previous PCI. Continue aspirin, statin, beta yadi. Troponin of 0.05 likely from demand ischemia from SVT. Qualifiers: Coronary Disease-Associated Artery/Lesion type: bypass graft, autologous vein Associated angina: without angina Qualified Code(s): I25.810 - Atherosclerosis of coronary artery bypass graft(s) without angina pectoris (7) Seizure Current Visit: Yes Status: Chronic Assessment and plan: hx of seizure on Dilantin, will continue. (8) DVT prophylaxis Current Visit: Yes Status: Acute Assessment and plan: Continue heparin. - Time Spent With Patient 25 - 35 minutes - Subjective Interval history: Patient awake and alert. Sitting up in chair. Tolerating oral diet. Denies chest pain or shortness of breath. Son is at bedside, and he states patient seems to be doing better. No fever. HR is controlled. Complains of constipation. No other acute events or complaints. - Constitutional Vitals: Temp Pulse Resp BP Pulse Ox 99.1 F 68 18 126/70 94 03/26/17 07:31 03/26/17 07:31 03/26/17 07:31 03/26/17 07:31 03/26/17 07:31 General appearance: Present: A&O X 3, pleasant, no acute distress, answers questions appropriately - Head Head exam: Present: atraumatic - Eye Eye exam: Present: EOMI, sclera anicteric - Neck Neck exam general surgery: Present: supple - Respiratory Respiratory exam: Present: CTAB. Absent: respiratory distress, rhonchi, wheezes - Cardiovascular Cardiovascular exam: Present: irregular rhythm, +S1, +S2. Absent: systolic murmur, tachycardia - GI/Abdominal GI/Abdominal exam: Present: soft. Absent: guarding, rigid, tenderness - Extremities Exam Extremities exam: Present: pedal edema, radial pulses palpable and symetrical. Absent: cyanotic - Neurological Exam Neurological exam: Present: alert, oriented X3, no focal deficits. Absent: facial droop, speech deficit Internal Medicine: Result - Labs CBC & Chem 7: 03/26/17 05:15 03/25/17 04:30 Labs: Short CBC 03/26/17 Range/Units 05:15 WBC 6.8 (4.3-11.1) K/mcL Hgb 7.6 L (12.9-16.9) g/dL Hct 22.9 L (37.5-50.1) % Plt Count 299 (140-400) K/mcL Neutrophils # 5.3 (1.6-8.9) K/mcL Consult Discharge Plan - Plan Referrals: Musa Lewis MD [Primary Care Provider] - 04/01/17 10:30 am
--- NOTE | 2017-03-26 11:11 | Cardiology Consult Note ---
Date of Encounter: 03/26/17 Time of Encounter: 09:45 Assessment and Plan (1) PSVT (paroxysmal supraventricular tachycardia) Current Visit: Yes Status: Acute Per EP: -PSVT in setting of gastric cancer/weight loss. -Had been very frequent throughout stay. -Over last 12 hours, two 5 beats and one 3 beat run of SVT noted. -On amiodarone 400mg daily and beta yadi. -Bps 110-120s systolic. -Patient had been followed by general cardiology. -Will continue beta yadi and amiodarone for now. -Will discuss with Dr.John Martinez for further recommendations. (2) Gastric cancer Current Visit: Yes Status: Chronic Per EP: -Known gastric caner. -Patient states is on oral chemotherapy. -May be contributing to SVT. -Of note, palliative care has been following patient. -Patient is now DNR-CCA. -Management per primary service. Qualifiers: Malignant neoplasm of stomach location: fundus of stomach Qualified Code(s) : C16.1 - Malignant neoplasm of fundus of stomach (3) Weight loss, non-intentional Current Visit: Yes Status: Acute Per EP: -Per review of records, patient has lost greater than 50 pounds in the past year. -Patient states he has not had an appetite with gastric cancer and chemo. -Patient now on megace and family state he has started eating more than he was at home. -May be contributing to SVT. -Management per primary service. Discussion w patient/family: The assessment and plan as outlined above was discussed with the patient and/or family members who expressed understanding and agreement. All questions were answered. Thank you for involving us in the care of your patient. Please call with any questions. Discussed and reviewed with Dr.John Martinez, changes will be made according. History of Present Illness Consult date: 03/24/17 Requesting physician: Armando Israel Consult reason: SVT Chief complaint: nausea/weakness History of present illness: EP consult: Mr. Llamas is a 82 year old male with a relevant past medical history of advanced gastric cancer, HTN, CAD, Hyperlipidemia, atrial fibrillation, aortic aneurysm, previous smoking, hypothyroidism, ROBLES. Patient presented to [facility] with complaints of weakness and nausea. Patient has been undergoing oral chemotherapy for advanced gastric cancer. While being evaluated in ER, patient was noted to be in SVT. Patient was given adenosine and lopressor. Patient became hypotensive and was subsequently started on amiodarone drip. Patient received full IV load of amiodarone. Patient now on amiodarone 400 daily. EP has been consulted for recommendations for SVT. Of note, family reports that patient had not been eating well at home and has been losing weight. Patient denies palpitations or fluttering. Patient states he cannot tell when he is in SVT. Patient states he feels better today. Patient seen and examined with family at bedside. Past Med Surg Social Fam HX - Past Medical History Attestation: Yes The following information was validated with the patient. Source: patient, old records reviewed, obtained from family Medical history: atrial fibrillation, cancer, coronary artery disease, hypertension, myocardial infarction, seizures, SVT, other Psychiatric history: no psych history - Past Surgical History Surgical History: appendectomy, cholecystectomy, coronary bypass (CABG) - Social History Smoking Status: Never smoker Smokeless Tobacco Status: No Alcohol use: none Drug use: none - Family History Mother History Unknown: Yes Living Status: Father History Unknown: Yes Living Status: Medications and Allergies Amlodipine Besylate 10 mg PO DAILY 04/16/16 [History] Atorvastatin [Lipitor] 40 mg PO HS 04/16/16 [History] Carvedilol 3.125 mg PO BID 04/16/16 [History] Diltiazem HCl [Tiazac] 120 mg PO DAILY 04/16/16 [History] DiphenhydraMINE [Benadryl] 25 mg PO HS 04/16/16 [History] Levothyroxine [Synthroid] 88 mcg PO QAM 04/16/16 [History] Loratadine [Claritin] 10 mg PO DAILY PRN 04/16/16 [History] Melatonin 6 mg PO HS 04/16/16 [History] Multivitamin [Multi-Day Vitamins] 1 each PO DAILY 04/16/16 [History] Omeprazole [PriLOSEC] 40 mg PO BID 04/16/16 [History] Phenytoin ER [Dilantin ER] 200 mg PO TID 04/16/16 [History] Resveratrol 100 mg PO DAILY 04/16/16 [History] Terazosin HCl 4 mg PO HS 04/16/16 [History] Triamcinolone Acetonide 1 appl TP DAILY 04/16/16 [History] Valsartan [Diovan] 320 mg PO DAILY 04/16/16 [History] Lidocaine/Prilocaine CREAM [Emla] 1 appl TP AD PRN #1 tube 05/03/16 [Rx] Magic Mouthwash 5 - 10 ml PO TID PRN #480 ml 06/20/16 [Rx] Aspirin [Lo-Dose Aspirin EC] 81 mg PO DAILY 07/06/16 [History] Mirtazapine [Remeron] 15 mg PO HS #30 tablet 08/22/16 [Rx] Docusate Sodium [Colace] 100 mg PO BID #60 capsule 11/13/16 [Rx] Furosemide [Lasix] 40 mg PO DAILY PRN #30 tablet 11/29/16 [Rx] Megestrol Acetate [Megace] 10 ml PO QAM #300 mls 12/04/16 [Rx] Oxycodone HCl [Oxaydo] 5 mg PO Q2H PRN #90 tablet.orl 02/12/17 [Rx] Prochlorperazine Maleate [Compazine] 10 mg PO Q6HR PRN #60 tablet 02/28/17 [Rx] Clopidogrel [Plavix] 75 mg PO DAILY 03/21/17 [History] Morphine Sulfate SR (12 HR) [MS Contin] 15 mg PO Q8HR PRN 03/21/17 [History] Sennosides [Senna] 17.2 mg PO HS PRN 03/21/17 [History] Tizanidine HCl 2 mg PO HS PRN 03/21/17 [History] Allergies No Known Allergies Allergy (Verified 03/21/17 14:54) All Systems Review: A 10-system review of systems was performed and is negative for pertinent findings except as documented above in the HPI. - Constitutional Constitutional: weakness, weight loss - Cardiovascular Cardiovascular: as per HPI Physical Examination Vital Signs, Last 4 Hours Temp Pulse Resp BP Pulse Ox 03/26/17 07:31 99.1 F 68 18 126/70 94 General: Conversant, No Apparent Distress HEENT: Atraumatic, Normocephaly, Mucus Membranes Moist Neck: No JVD, Normal carotid pulses Cardiac: Reg Rate and Rhythm, Normal S1 and S2, No Murmur Lungs: Normal Breath Sounds, No Wheeze, Rales, Rhonchi Neuro: Alert and responsive, No focal deficits noted Abdomen: Soft, Non-Tender Skin: No rashes noted on visualized skin Musculoskeletal: No Chest Wall Tenderness Extremities: No Clubbing, No Cyanosis, Normal Pulses, Other (Mild bilateral lower extremity edema, non-pitting. ) Results 03/26/17 05:15 03/25/17 04:30 Lab Results Active Medications Acetaminophen (Tylenol) 650 mg PO Q6HR PRN PRN Reason: Mild Pain (1-3) Stop: 09/20/17 20:49 Amiodarone HCl (Cordarone) 400 mg PO DAILY [facility] Stop: 09/24/17 14:46 Last Admin: 03/26/17 09:03 Dose: 400 mg Aspirin (Aspirin Ec) 81 mg PO DAILY [facility] Stop: 09/21/17 09:01 Last Admin: 03/26/17 09:03 Dose: 81 mg Atorvastatin Calcium (Lipitor) 40 mg PO HS [facility] Stop: 09/20/17 21:01 Last Admin: 03/25/17 21:24 Dose: 40 mg Docusate Sodium (Colace) 100 mg PO BID [facility] PRN Reason: Protocol Stop: 09/20/17 21:01 Last Admin: 03/26/17 09:03 Dose: 100 mg Heparin Sodium (Porcine) (Heparin) 5,000 unit SQ Q12HCO [facility] Stop: 09/21/17 06:01 Last Admin: 03/26/17 05:22 Dose: 5,000 unit Levothyroxine Sodium (Synthroid) 88 mcg PO QAM [facility] Stop: 09/21/17 09:01 Last Admin: 03/26/17 09:02 Dose: 88 mcg Lidocaine/Prilocaine (Emla) 1 gm TP AD PRN PRN Reason: port access Stop: 09/20/17 20:52 Loratadine (Claritin) 10 mg PO DAILY PRN; Protocol PRN Reason: Allergy Symptoms Stop: 09/20/17 20:52 Megestrol Acetate (Megace) 400 mg PO QAM [facility] PRN Reason: Protocol Stop: 09/21/17 09:01 Last Admin: 03/26/17 09:03 Dose: 400 mg Melatonin (Melatonin) 6 mg PO HS [facility] Stop: 09/20/17 21:01 Last Admin: 03/25/17 21:24 Dose: 6 mg Metoprolol Succinate (Toprol Xl) 25 mg PO BID [facility] Stop: 09/24/17 21:01 Last Admin: 03/26/17 09:02 Dose: 25 mg Metoprolol Tartrate (Lopressor) 5 mg IVP Q6HR PRN PRN Reason: Tachyarrhythmias Stop: 09/20/17 20:59 Mirtazapine (Remeron) 15 mg PO HS [facility] Stop: 09/20/17 21:01 Last Admin: 03/25/17 21:24 Dose: 15 mg Morphine Sulfate (Ms Contin) 15 mg PO Q8HR [facility] Stop: 09/22/17 16:31 Last Admin: 03/26/17 09:03 Dose: 15 mg Multivitamins/Calcium (Thera M Plus) 1 tab PO DAILY [facility] Stop: 09/21/17 09:01 Last Admin: 03/26/17 09:02 Dose: 1 tab Naloxone HCl (Narcan) 0.4 mg IVP Q2MIN PRN PRN Reason: Opioid Reversal Stop: 09/20/17 20:49 Omeprazole (Prilosec) 40 mg PO BID [facility] PRN Reason: Protocol Stop: 09/20/17 21:01 Last Admin: 03/26/17 09:03 Dose: 40 mg Ondansetron HCl (Zofran) 4 mg IVP Q8HR PRN PRN Reason: Nausea And Vomiting Stop: 09/20/17 20:49 Last Admin: 03/25/17 10:50 Dose: 4 mg Oxycodone HCl (Roxicodone) 5 mg PO Q2H PRN PRN Reason: Pain Last Admin: 03/24/17 14:21 Dose: 5 mg Phenytoin (Dilantin Er) 200 mg PO TID [facility] Stop: 09/20/17 21:01 Last Admin: 03/26/17 09:02 Dose: 200 mg Prochlorperazine Maleate (Compazine) 10 mg PO Q6HR PRN PRN Reason: Nausea Stop: 09/20/17 20:52 Senna (Senna) 17.2 mg PO HS PRN PRN Reason: Constipation Stop: 09/20/17 20:52 Terazosin HCl (Hytrin) 4 mg PO HS [facility] Stop: 09/20/17 21:01 Last Admin: 03/25/17 21:24 Dose: 4 mg Triamcinolone Acetonide (Kenalog) 0 appl TP DAILY [facility] Stop: 09/21/17 09:01 Last Admin: 03/26/17 09:04 Dose: 1 appl Laboratory Tests 03/22/17 03/22/17 03/25/17 04:03 04:03 04:30 Hgb 8.9 L Potassium 3.8 Creatinine 0.58 L Magnesium 1.7 TSH 2.572 03/26/17 05:15 Hgb 7.6 L Potassium Creatinine Magnesium TSH - Imaging and Cardiology Chest Xray: report reviewed Echo: report reviewed - EKG Interpretation EKG results cardiology: personally reviewed (ECG on admission with SVT, HR 187.) , other (Telemetry reviewed with average HR, previous 12 hours noted to be 69, sinus rhythm. Patient had two 5 beat runs of SVT and one 3 beat run of SVT.) Consult Discharge Plan - Plan Referrals: Musa Lewis MD [Primary Care Provider] - 04/01/17 10:30 am
--- NOTE | 2017-03-26 13:17 | Podiatry Consult Note ---
Date of Encounter: 03/26/17 Time of Encounter: 11:45 Assessment and Plan (1) Dystrophic nail Current visit: Yes Status: Acute Debridement of toe nails #2, #4 bilaterally in Length, width and thickness with nail nipper and nail lens grinder and polisher to debulk nails to prevent infection/ ulceration. No complication ensued. (2) Onychomycosis Current visit: Yes Status: Acute Discuss and educate on foot care and necessity for daily inspection of skin. Debridement of toe nails #1, #3 and #5 bilaterally in Length, width and thickness with nail nipper and nail lens grinder and polisher to debulk nails to prevent infection /ulceration. No complication ensued. Recommend patient f/u with Torey Cline CNP in three months in Podiatry clinic for foot care. History of Present Illness HPI: Mr. Llamas is a 82 year old male admitted for weakness. Podiatry was consulted for ingrown toenails to both great toes. It has a medical history significant for CAD, hypertension, UT, seizures, and for stage 4 gastric cancer and liver metastasis. Patient is sitting up in chair with spouse and son at bedside. Patient states he had his toenails trimmed along time ago by Dr. Capone. Patient states he is unable to trim his own toe nails due to the thickness. Patient states he does get numbness and tingling in his feet. Past Med Surg Social Fam HX - Past Medical History Medical history: atrial fibrillation, cancer, coronary artery disease, hypertension, myocardial infarction, seizures, SVT, other Psychiatric history: no psych history - Past Surgical History Surgical History: appendectomy, cholecystectomy, coronary bypass (CABG) - Social History Smoking Status: Never smoker Smokeless Tobacco Status: No Alcohol use: none Drug use: none - Family History Mother History Unknown: Yes Living Status: Father History Unknown: Yes Living Status: Medications and Allergies Amlodipine Besylate 10 mg PO DAILY 04/16/16 [History] Atorvastatin [Lipitor] 40 mg PO HS 04/16/16 [History] Carvedilol 3.125 mg PO BID 04/16/16 [History] Diltiazem HCl [Tiazac] 120 mg PO DAILY 04/16/16 [History] DiphenhydraMINE [Benadryl] 25 mg PO HS 04/16/16 [History] Levothyroxine [Synthroid] 88 mcg PO QAM 04/16/16 [History] Loratadine [Claritin] 10 mg PO DAILY PRN 04/16/16 [History] Melatonin 6 mg PO HS 04/16/16 [History] Multivitamin [Multi-Day Vitamins] 1 each PO DAILY 04/16/16 [History] Omeprazole [PriLOSEC] 40 mg PO BID 04/16/16 [History] Phenytoin ER [Dilantin ER] 200 mg PO TID 04/16/16 [History] Resveratrol 100 mg PO DAILY 04/16/16 [History] Terazosin HCl 4 mg PO HS 04/16/16 [History] Triamcinolone Acetonide 1 appl TP DAILY 04/16/16 [History] Valsartan [Diovan] 320 mg PO DAILY 04/16/16 [History] Lidocaine/Prilocaine CREAM [Emla] 1 appl TP AD PRN #1 tube 05/03/16 [Rx] Magic Mouthwash 5 - 10 ml PO TID PRN #480 ml 06/20/16 [Rx] Aspirin [Lo-Dose Aspirin EC] 81 mg PO DAILY 07/06/16 [History] Mirtazapine [Remeron] 15 mg PO HS #30 tablet 08/22/16 [Rx] Docusate Sodium [Colace] 100 mg PO BID #60 capsule 11/13/16 [Rx] Furosemide [Lasix] 40 mg PO DAILY PRN #30 tablet 11/29/16 [Rx] Megestrol Acetate [Megace] 10 ml PO QAM #300 mls 12/04/16 [Rx] Oxycodone HCl [Oxaydo] 5 mg PO Q2H PRN #90 tablet.orl 02/12/17 [Rx] Prochlorperazine Maleate [Compazine] 10 mg PO Q6HR PRN #60 tablet 02/28/17 [Rx] Clopidogrel [Plavix] 75 mg PO DAILY 03/21/17 [History] Morphine Sulfate SR (12 HR) [MS Contin] 15 mg PO Q8HR PRN 03/21/17 [History] Sennosides [Senna] 17.2 mg PO HS PRN 03/21/17 [History] Tizanidine HCl 2 mg PO HS PRN 03/21/17 [History] Allergies No Known Allergies Allergy (Verified 03/21/17 14:54) All Systems Reviewed: A 10-system review of systems was performed and is negative for pertinent findings except as documented above in the HPI. Physical Exam - Constitutional Vitals: Temp Pulse Resp BP Pulse Ox 97.4 F L 75 16 125/50 92 03/26/17 11:45 03/26/17 11:45 03/26/17 11:45 03/26/17 11:45 03/26/17 11:45 General appearance: cooperative, no acute distress Exam: NAIL PATHOLOGY: Nails #1, #3 and #5 bilaterally are thick, discolored, and mycotic. Nails #2 through #4bilaterally are elongated and dystrophic. Pincer nail deformity to toe nails #1 bilaterally. ULCER: No signs of ulceration or open wound of either foot.. Podiatry General Exam: General appearance: alert awake oriented X 3. Calm and pleasant, no acute distress.. Vascular: Pedal pulses +2/4 DP/PT , No evidence of cyanosis, pallor or rubor, Edema graded at 1+/4, Skin temperature warm, No varicosities or varicose veins noted, Homans Sign negative, capillary refill time is immediate to digits.. Neurologic: Diminished epicritic sensation as evidenced by the SWMF 5.07. Musculoskeletal: Muscle strength 5/5 and equal bilaterally. Integument: Skin with decreased turgor, decreased subcutaneous tissue, skin thin and shiny with trophic changes associated with comorbidities as described in history.. Results - Labs Result Diagrams: 03/26/17 05:15 03/25/17 04:30 Labs: Abnormal lab results RBC 2.58 M/mcL (4.19-5.50) L 03/26/17 05:15 Hgb 7.6 g/dL (12.9-16.9) L 03/26/17 05:15 Hct 22.9 % (37.5-50.1) L 03/26/17 05:15 RDW 17.7 % (11.5-14.5) H 03/26/17 05:15 MPV 9.2 fL (9.4-12.4) L 03/26/17 05:15 Lymphocytes # 0.5 K/mcL (0.6-4.6) L 03/26/17 05:15 Sodium 134 mEq/L (136-145) L 03/25/17 04:30 Creatinine 0.58 mg/dL (0.72-1.25) L 03/25/17 04:30 Calculated Osmolality 276 (280-300) L 03/25/17 04:30 Calcium 8.1 mg/dL (8.6-10.8) L 03/25/17 04:30 AST 90 Units/L (5-34) H 03/24/17 10:35 ALT 86 Units/L (0-55) H 03/24/17 10:35 Alkaline Phosphatase 345 Units/L (38-126) H 03/24/17 10:35 Troponin I 0.05 ng/mL (0-0.03) H* 03/21/17 15:36 Albumin 2.3 g/dL (3.5-5.0) L 03/24/17 10:35 Globulin 3.7 g/dL (2.4-3.5) H 03/24/17 10:35 Albumin/Globulin Ratio 0.6 (1.1-2.2) L 03/24/17 10:35 H & H 03/26/17 Range/Units 05:15 Hgb 7.6 L (12.9-16.9) g/dL Hct 22.9 L (37.5-50.1) % All other labs normal. Consult Discharge Plan - Plan Referrals: Musa Lewis MD [Primary Care Provider] - 04/01/17 10:30 am
[2017-03-26] MEDS ORDERED: Psyllium 1 PACKET POWD.PACK PO PRN (14:32)
[2017-03-26] MEDS ORDERED: *HR* OxyCODONE Immed Rel 5 MG TABLET PO PRN (14:33)
--- NOTE | 2017-03-26 18:56 | Oncology Inp Consult Note ---
<Lucio Bynum Jr - Last Filed: 03/26/17 19:01> Date of Encounter: 03/26/17 Time of Encounter: 17:45 Assessment and Plan (1) Gastric cancer Status: Chronic Assessment and plan: Metastatic gastric adenocarcinoma: HER-2 positive. Treatment intent palliative. Currently receiving combination chemotherapy plus dual HER-2 therapy. Tolerating treatment relatively well with no unexpected side effects. He is receiving 5-FU every 3 weeks for better tolerability due to multiple previous lines of antineoplastic therapy. Tumor marker CEA was rising. Most recent imaging is stable over a two-month comparison. Admitted to hospital for PSVT needing amiodorone conversion with beta yadi therapy. Plan is to continue conservative management and discharge to [facility] for recovery. Next chemo date 04/03/17 may need delayed due to his severe weakness. Dr Stearns to speak with patient before discharge to make that decision and see if chemo contributing to PSVT. We agree with current cardiology and hospitalist recommendations. We will continue to follow Qualifiers: Malignant neoplasm of stomach location: fundus of stomach Qualified Code(s) : C16.1 - Malignant neoplasm of fundus of stomach (2) PSVT (paroxysmal supraventricular tachycardia) Status: Acute - Data of Consult Patient: known to practice within the last 3 years Consult date: 03/26/17 Requesting Physician: Raúl Sadler MD Primary Care Provider: Musa Lewis MD - Consult Narrative History of present illness: Mr. Llamas is a 82 year old male patient of Dr Ollie Stearns at [facility] treated for advanced gastric cancer. Patient was treated by Dr. Elizabeth and now with Dr Stearns. His current oncologic history would begin on 04/16/2016 when he would be evaluated for fatigue and paleness. His hemoglobin at that time would be noted to be 6.7. He would be taken for EGD by Dr. Vincent on 04/09/2016 and found to have grade D esophagitis as well as a flat nonbleeding ulcerative lesion in the gastric fundus. Biopsy of his fundus lesion would demonstrate adenocarcinoma consistent with gastric primary. HER-2 staining would be 3+. PET/CT 05/02/2016 showed evidence for metastatic disease to his left supraclavicular lymph node as well as his liver and intra-abdominal lymph nodes. Treatment history: Xeloda + Herceptin started 05/09/16. XELOX + Herceptin o1cgddr from 05/30-07/11/16. Stopped due to progression. 07/04/2016: CT shows excellent response to disease. 08/01/2016: Xeloda abandoned for worsening dementia. Herceptin Alone continued. 10/03/2016: Started docetaxel + Herceptin every 3 weeks regimen with plan to treat to progression or intolerance. Docetaxel stopped due to progression. 12/19/16: Started infusional 5-FU plus Pertuzumab plus trastuzumab regimen. Pertuzumab added with cycle 2 of treatment on 01/09/17. Most recent imaging: CT chest abdomen and pelvis shows decrease left supraclavicular adenopathy. No suspicious pulmonary nodules. Mixed response in the abdomen. Left hepatic lobe nodule measures stable at 1 cm versus previous. One of the liver lesion slightly increased from 1.4-1.8 cm. Gastrohepatic node 5.8 cm versus previous of 1.7 cm. Aortocaval node 3 cm versus previous of 2.6 cm. Repeat abdomen and pelvis CT on 02/05/17 showed relatively stable radiographic abnormality right two-month comparison including 7.5 cm pancreatic lesion enlarged lymph nodes in the periaortic, gastrohepatic regions. Indeterminate, low density liver lesions stable versus previous. MUGA scan 01/24/17 showed LVEF 61%. Most recent tumor marker: DATE CEA 10/23/16 34 01/17/17 229 02/07/17 204 02/28/17 227 Patient admitted to hospital for severe weakness, and found to have atrial fibrillation needing amiodorone to convert back to sinus rhythm under care of Dr Ortiz Martinez. Past Med Surg Social Fam HX - Past Medical History Medical history: atrial fibrillation, cancer, coronary artery disease, hypertension, myocardial infarction, seizures, SVT, other Psychiatric history: no psych history - Past Surgical History Surgical History: appendectomy, cholecystectomy, coronary bypass (CABG) - Social History Smoking Status: Never smoker Smokeless Tobacco Status: No Alcohol use: none Drug use: none - Family History Mother History Unknown: Yes Living Status: Father History Unknown: Yes Living Status: Medications and Allergies Atorvastatin [Lipitor] 40 mg PO HS 04/16/16 [History] DiphenhydraMINE [Benadryl] 25 mg PO HS 04/16/16 [History] Levothyroxine [Synthroid] 88 mcg PO QAM 04/16/16 [History] Loratadine [Claritin] 10 mg PO DAILY PRN 04/16/16 [History] Melatonin 6 mg PO HS 04/16/16 [History] Multivitamin [Multi-Day Vitamins] 1 each PO DAILY 04/16/16 [History] Omeprazole [PriLOSEC] 40 mg PO BID 04/16/16 [History] Phenytoin ER [Dilantin ER] 200 mg PO TID 04/16/16 [History] Resveratrol 100 mg PO DAILY 04/16/16 [History] Terazosin HCl 4 mg PO HS 04/16/16 [History] Triamcinolone Acetonide 1 appl TP DAILY 04/16/16 [History] Valsartan [Diovan] 320 mg PO DAILY 04/16/16 [History] Lidocaine/Prilocaine CREAM [Emla] 1 appl TP AD PRN #1 tube 05/03/16 [Rx] Magic Mouthwash 5 - 10 ml PO TID PRN #480 ml 06/20/16 [Rx] Aspirin [Lo-Dose Aspirin EC] 81 mg PO DAILY 07/06/16 [History] Mirtazapine [Remeron] 15 mg PO HS #30 tablet 08/22/16 [Rx] Furosemide [Lasix] 40 mg PO DAILY PRN #30 tablet 11/29/16 [Rx] Megestrol Acetate [Megace] 10 ml PO QAM #300 mls 12/04/16 [Rx] Oxycodone HCl [Oxaydo] 5 mg PO Q2H PRN #90 tablet.orl 02/12/17 [Rx] Prochlorperazine Maleate [Compazine] 10 mg PO Q6HR PRN #60 tablet 02/28/17 [Rx] Morphine Sulfate SR (12 HR) [MS Contin] 15 mg PO Q8HR PRN 03/21/17 [History] Sennosides [Senna] 17.2 mg PO HS PRN 03/21/17 [History] Acetaminophen [Tylenol] 650 mg PO Q6HR PRN #0 tablet 03/27/17 [Rx] Amiodarone [Cordarone] 200 mg PO DAILY #30 tablet 03/27/17 [Rx] Docusate [Colace] 100 mg PO BID capsule 03/27/17 [Rx] Metoprolol XL (24 HR) Succ [Toprol Xl] 25 mg PO BID 30 Days 03/27/17 [Rx] Morphine Sulfate SR (12 HR) [MS Contin] 15 mg PO Q8HR tablet.er 03/27/17 [Rx] Potassium Chloride [Klor-Con 10] 10 meq PO DAILY #20 tablet.er 03/27/17 [Rx] Psyllium [Metamucil Fiber Singles Packet] 1 packet PO DAILY PRN #0 powd.pack 05/06 [Rx] Allergies No Known Allergies Allergy (Verified 03/21/17 14:54) Constitutional: Present: fatigue, malaise Cardiovascular: Present: irregular heart rhythm, palpitations Oncology - Exam - Constitutional Vitals: Temp Pulse Resp BP Pulse Ox 98.4 F 70 18 116/63 97 03/26/17 15:55 03/26/17 15:55 03/26/17 15:55 03/26/17 15:55 03/26/17 15:55 General appearance: cooperative, no acute distress - Head Head exam: Present: atraumatic, normal inspection - Eye Eye exam: Present: normal appearance, PERRL - ENT ENT exam: Present: mucous membranes moist - Neck Neck exam: Present: full ROM, normal inspection - Respiratory Respiratory exam: Present: CTAB - Cardiovascular Cardiovascular exam: Present: RRR, +S1, +S2 - GI/Abdominal GI/Abdominal exam: Present: normal bowel sounds, soft - Extremities Exam Extremities exam: Present: full ROM, normal inspection - Neurological Exam Neurological exam: Present: alert, oriented X3, no focal deficits - Psychiatric Psychiatric exam: Present: normal affect, normal mood - Skin Skin exam: Present: dry, intact, warm Oncology - Results - Labs Labs: Short CBC 03/26/17 Range/Units 05:15 WBC 6.8 (4.3-11.1) K/mcL Hgb 7.6 L (12.9-16.9) g/dL Hct 22.9 L (37.5-50.1) % Plt Count 299 (140-400) K/mcL Neutrophils # 5.3 (1.6-8.9) K/mcL Consult Discharge Plan - Plan Referrals: Musa Lewis MD [Primary Care Provider] - ([facility] no PCP appointment needed) Prescriptions: Amiodarone [Cordarone] 200 mg PO DAILY #30 tablet Metoprolol XL (24 HR) Succ [Toprol Xl] 25 mg PO BID 30 Days Potassium Chloride [Klor-Con 10] 10 meq PO DAILY #20 tablet.er <Ollie Stearns - Last Filed: 03/27/17 17:41> Date of Encounter: 03/26/17 - Data of Consult Requesting Physician: Raúl Sadler MD Primary Care Provider: Musa Lewis MD - Consult Narrative History of present illness: Mr. Llamas is a 82 year old male Oncology - Exam - Constitutional Vitals: Temp Pulse Resp BP Pulse Ox 98.5 F 71 15 117/68 99 03/27/17 12:03/27/17 12:03/27/17 12:03/27/17 12:03/27/17 12:07 Oncology - Results - Labs Labs: Short CBC 03/27/17 03/27/17 Range/Units 03:50 11:20 WBC 5.6 (4.3-11.1) K/mcL Hgb 6.8 L 9.0 L D (12.9-16.9) g/dL Hct 20.3 L 27.5 L (37.5-50.1) % Plt Count 227 (140-400) K/mcL Neutrophils # 4.1 (1.6-8.9) K/mcL BMP 03/27/17 03:50 Sodium 134 L Potassium 3.3 L Chloride 111 H Carbon Dioxide 17 L BUN 5 L Creatinine 0.49 L Glucose 85 Calcium 7.2 L - Attending Attestation I saw and personally examined Mr. Llamas at his bedside today and reviewed the chart for details of ongoing care by hospital team. I verified/agree with the history and physical exam findings documented by Moises Bynum CNP above. Patient is known to us from ongoing management of metastatic gastric cancer with liver involvement. He is currently on treatment with infusional 5-FU plus Herceptin plus Pertuzumab regimen every 3 weeks and his disease appeared to be fairly well controlled based on his most recent scan. He is currently hospitalized for progressive weakness and was found to have paroxysmal SVT on admission. He has been managed supportively and is feeling much better this morning. I reviewed his records extensively for details of ongoing care by hospital team including consultation report from podiatry, cardiology and appreciate their input. Cardiology has recommended conservative management of his tachyarrhythmia. I think is very reasonable. Appreciate help from breath with management of the dystrophic nails and onychomycosis. I personally reviewed and interpreted patient's most recent imaging studies dated 03/23/17. I discussed the findings with the patient today. Chest x-ray negative for acute cardiopulmonary abnormality. Regarding his gastric cancer, he is not having any symptoms attributable to his gastric cancer presently. I suspect his symptoms of progressive weakness may be at least partly related to his ongoing chemotherapy in addition to his newly diagnosed arrhythmia. He was previously scheduled for treatment 04/03/17 but have recommended that we hold off on his scheduled treatment until he is clinically improved. He is planned for discharge to rehabilitation in [place] which I think is very reasonable. We will plan to see him in the office in the next week or 2 to assess his overall situation following which we'll discuss resuming antineoplastic therapy depends on patient's preferences and treatment goals.
[2017-03-26] MEDS: Melatonin 3 MG TABLET PO SCH (21:01)
[2017-03-26] MEDS: Mirtazapine 15 MG TABLET PO SCH (21:01)
[2017-03-27] MEDS: *HR* Morphine Sulfate SR (12 HR) 15 MG TABLET.ER PO SCH ×2 (00:09→08:35)
[2017-03-27 04:14] LABS: Basophils % 0.2 %; Eosinophils # 0.3 K/mcL (0.0-0.6); Eosinophils % 5.7 %; Hematocrit 20.3 % (37.5-50.1); Hemoglobin 6.8 g/dL (12.9-16.9); Immature Granulocytes % 0.4 % (0-4); Lymphocytes # 0.6 K/mcL (0.6-4.6); Lymphocytes % 10.3 %; Mean Corpuscular HGB Conc 33.5 g/dL (31.6-35.5); Mean Corpuscular Hemoglobin 29.4 pg (28.0-33.3); Mean Corpuscular Volume 87.9 fL (83.0-100.0); Mean Platelet Volume 9.2 fL (9.4-12.4); Monocytes # 0.6 K/mcL (0.0-1.3); Neutrophils # 4.1 K/mcL (1.6-8.9); Platelet Count 227 K/mcL (140-400); Red Blood Count 2.31 M/mcL (4.19-5.50); Red Cell Distribution Width 17.5 % (11.5-14.5); Segmented Neutrophils % 72.4 %
[2017-03-27 04:25] LABS: BUN/Creatinine Ratio 10 (6-26); Blood Urea Nitrogen 5 mg/dL (8-26); Calcium 7.2 mg/dL (8.6-10.8); Carbon Dioxide 17 mEq/L (19-29); Chloride 111 mEq/L (98-109); Glucose 85 mg/dL (70-99); Osmolality,Calculated 275 (280-300); Potassium 3.3 mEq/L (3.5-4.5); Sodium 134 mEq/L (136-145); eGFR For African Americans > 60 (> 60); eGFR For Non-African Americans > 60 (> 60)
[2017-03-27] MEDS: *HR* Heparin 5,000 UNIT/ML VIAL SQ SCH (05:20)
[2017-03-27] MEDS ORDERED: 0.9 % Sodium Chloride 250 ML ONE (08:11)
[2017-03-27] MEDS: Multivit/Ca/Min/Fe/FA 1 TAB TABLET PO SCH (08:35)
[2017-03-27] MEDS: Megestrol Acetate 400 MG/10 ML UDC PO SCH (08:36)
[2017-03-27] MEDS: Aspirin Enteric Coated 81 MG Tablet PO SCH (08:36)
[2017-03-27] MEDS: Metoprolol XL (24 HR) Succ 25 MG TAB.ER.24H PO SCH (08:36)
[2017-03-27] MEDS ORDERED: *HR* Amiodarone 200 MG TABLET PO SCH (09:00)
--- NOTE | 2017-03-27 09:34 | Cardiology Progress Note ---
Date of Encounter: 03/27/17 Time of Encounter: 08:30 Assessment and Plan (1) PSVT (paroxysmal supraventricular tachycardia) Current Visit: Yes Status: Acute Per cardiology: -PSVT in setting of gastric cancer/weight loss. -Had been very frequent throughout stay. -Over last 12 hours, no atrial tachycardia or SVT noted. -On amiodarone 200mg daily and beta yadi. -Bps 120s systolic. -Will continue beta yadi and amiodarone. -Cardiology will sign off and will follow up in outpatient setting. Follow up set. Re-consult if needed. Thank you. (2) Gastric cancer Current Visit: Yes Status: Chronic Per cardiology: -Known gastric caner. -Patient states is on oral chemotherapy. -May be contributing to SVT. -Of note, palliative care has been following patient. -Patient is now DNR-CCA. -Management per primary service. Qualifiers: Malignant neoplasm of stomach location: fundus of stomach Qualified Code(s) : C16.1 - Malignant neoplasm of fundus of stomach (3) Weight loss, non-intentional Current Visit: Yes Status: Acute Per cardiology: -Per review of records, patient has lost greater than 50 pounds in the past year. -Patient states he has not had an appetite with gastric cancer and chemo. -Patient now on megace and family state he has started eating more than he was at home. -May be contributing to SVT. -Management per primary service. Discussion w patient/family: The assessment and plan as outlined above was discussed with the patient and/or family members who expressed understanding and agreement. All questions were answered. Thank you for involving us in the care of your patient. Please call with any questions. Discussed and reviewed with . Subjective Principal diagnosis: PSVT Interval history: Patient presented to [facility] with complaints of weakness and nausea. Patient has been undergoing oral chemotherapy for advanced gastric cancer. While being evaluated in ER, patient was noted to be in SVT. Patient was given adenosine and lopressor. Patient became hypotensive and was subsequently started on amiodarone drip. Patient received full IV load of amiodarone. Patient now on amiodarone 200mg daily. Of note, family reports that patient had not been eating well at home and has been losing weight. Patient denies palpitations or fluttering. Patient states he cannot tell when he is in SVT. Patient states he feels better today. Patient seen and examined with family at bedside. Objective Vital Signs, Last 4 Hours Temp Pulse Resp BP Pulse Ox 03/27/17 08:45 98.3 F 74 16 130/66 97 03/27/17 08:30 98 F 70 16 131/77 96 03/27/17 07:54 98 F 70 16 131/77 96 03/27/17 07:15 98.5 F 73 17 126/72 95 General: Conversant, No Apparent Distress HEENT: Atraumatic, Normocephaly, Mucus Membranes Moist Neck: No JVD, Normal carotid pulses Cardiac: Reg Rate and Rhythm, Normal S1 and S2, No Murmur Lungs: Normal Breath Sounds, No Wheeze, Rales, Rhonchi Neuro: Alert and responsive, No focal deficits noted Abdomen: Soft, Non-Tender Skin: No rashes noted on visualized skin Musculoskeletal: No Chest Wall Tenderness Extremities: No Clubbing, No Cyanosis, Normal Pulses, Other (Mild bilateral lower extremity, non-pitting edema. ) Results 03/27/17 03:50 03/27/17 03:50 Lab Results Active Medications Acetaminophen (Tylenol) 650 mg PO Q6HR PRN PRN Reason: Mild Pain (1-3) Stop: 09/20/17 20:49 Amiodarone HCl (Cordarone) 200 mg PO DAILY [facility] Stop: 09/26/17 09:01 Last Admin: 03/27/17 08:36 Dose: 200 mg Aspirin (Aspirin Ec) 81 mg PO DAILY [facility] Stop: 09/21/17 09:01 Last Admin: 03/27/17 08:36 Dose: 81 mg Atorvastatin Calcium (Lipitor) 40 mg PO HS [facility] Stop: 09/20/17 21:01 Last Admin: 03/26/17 21:00 Dose: 40 mg Docusate Sodium (Colace) 100 mg PO BID [facility] PRN Reason: Protocol Stop: 09/20/17 21:01 Last Admin: 03/27/17 08:36 Dose: 100 mg Heparin Sodium (Porcine) (Heparin) 5,000 unit SQ Q12HCO [facility] Stop: 09/21/17 06:01 Last Admin: 03/27/17 05:20 Dose: 5,000 unit Levothyroxine Sodium (Synthroid) 88 mcg PO QAM [facility] Stop: 09/21/17 09:01 Last Admin: 03/27/17 08:36 Dose: 88 mcg Lidocaine/Prilocaine (Emla) 1 gm TP AD PRN PRN Reason: port access Stop: 09/20/17 20:52 Loratadine (Claritin) 10 mg PO DAILY PRN; Protocol PRN Reason: Allergy Symptoms Stop: 09/20/17 20:52 Megestrol Acetate (Megace) 400 mg PO QAM [facility] PRN Reason: Protocol Stop: 09/21/17 09:01 Last Admin: 03/27/17 08:36 Dose: 400 mg Melatonin (Melatonin) 6 mg PO HS [facility] Stop: 09/20/17 21:01 Last Admin: 03/26/17 21:01 Dose: 6 mg Metoprolol Succinate (Toprol Xl) 25 mg PO BID [facility] Stop: 09/24/17 21:01 Last Admin: 03/27/17 08:36 Dose: 25 mg Metoprolol Tartrate (Lopressor) 5 mg IVP Q6HR PRN PRN Reason: Tachyarrhythmias Stop: 09/20/17 20:59 Mirtazapine (Remeron) 15 mg PO HS [facility] Stop: 09/20/17 21:01 Last Admin: 03/26/17 21:01 Dose: 15 mg Morphine Sulfate (Ms Contin) 15 mg PO Q8HR [facility] Stop: 09/22/17 16:31 Last Admin: 03/27/17 08:35 Dose: 15 mg Multivitamins/Calcium (Thera M Plus) 1 tab PO DAILY [facility] Stop: 09/21/17 09:01 Last Admin: 03/27/17 08:35 Dose: 1 tab Naloxone HCl (Narcan) 0.4 mg IVP Q2MIN PRN PRN Reason: Opioid Reversal Stop: 09/20/17 20:49 Omeprazole (Prilosec) 40 mg PO BID [facility] PRN Reason: Protocol Stop: 09/20/17 21:01 Last Admin: 03/27/17 08:36 Dose: 40 mg Ondansetron HCl (Zofran) 4 mg IVP Q8HR PRN PRN Reason: Nausea And Vomiting Stop: 09/20/17 20:49 Last Admin: 03/25/17 10:50 Dose: 4 mg Oxycodone HCl (Roxicodone) 5 mg PO Q2H PRN PRN Reason: moderate to severe pain Stop: 09/26/17 14:34 Phenytoin (Dilantin Er) 200 mg PO TID [facility] Stop: 09/20/17 21:01 Last Admin: 03/27/17 08:36 Dose: 200 mg Prochlorperazine Maleate (Compazine) 10 mg PO Q6HR PRN PRN Reason: Nausea Stop: 09/20/17 20:52 Psyllium Hydrophilic Mucilloid (Metamucil Fiber Singles Packet) 1 packet PO DAILY PRN PRN Reason: Constipation Stop: 09/26/17 09:01 Senna (Senna) 17.2 mg PO HS PRN PRN Reason: Constipation Stop: 09/20/17 20:52 Terazosin HCl (Hytrin) 4 mg PO HS [facility] Stop: 09/20/17 21:01 Last Admin: 03/26/17 21:00 Dose: 4 mg Laboratory Tests 03/23/17 03/26/17 03/27/17 05:00 05:15 03:50 Hgb 8.0 L 7.6 L 6.8 L Creatinine 03/27/17 03:50 Hgb Creatinine 0.49 L - Imaging and Cardiology Chest Xray: report reviewed Echo: report reviewed - EKG Interpretation EKG results cardiology: other (Telemetry reviewed with average HR 73, sinus rhythm. PACs noted. No atrial tachycardia/SVT noted.) Consult Discharge Plan - Plan Referrals: Musa Lewis MD [Primary Care Provider] - 04/01/17 10:30 am
[2017-03-27 11:55] LABS: Hematocrit 27.5 % (37.5-50.1)
[2017-03-27 12:10] VITALS: BP 117/68
--- NOTE | 2017-03-27 13:08 | Discharge Summary ---
Date of Encounter: 03/27/17 Time of Encounter: 08:45 - Discharge Diagnosis (1) PSVT (paroxysmal supraventricular tachycardia) Priority: Primary Status: Resolved Comments: -PSVT in setting of gastric cancer/weight loss. -Had been very frequent throughout stay. -Over last 12 hours, no atrial tachycardia or SVT noted. -On amiodarone 200mg daily and beta yadi. -Bps 120s systolic. -Will continue beta yadi and amiodarone. (2) PAF (paroxysmal atrial fibrillation) Priority: Primary Status: Chronic Comments: Not on A/C due to hx of GIB and CA (3) Hypothyroid Priority: Secondary Status: Chronic Comments: Continue synthroid, TSH WNL Qualifiers: Hypothyroidism type: unspecified Qualified Code(s): E03.9 - Hypothyroidism , unspecified (4) JACK (iron deficiency anemia) Priority: Primary Status: Chronic Comments: Chronic, stable, s/p 2 units PRBC Qualifiers: Iron deficiency anemia type: chronic blood loss Qualified Code(s): D50.0 - Iron deficiency anemia secondary to blood loss (chronic) (5) Gastric cancer Priority: Primary Status: Chronic Comments: Metastatic gastric adenocarcinoma Undergoing chemotherapy currently - palliative On MS Contin 3 times a day and oxycodone IR for cancer associated pain followed by Dr. Stearns Qualifiers: Malignant neoplasm of stomach location: fundus of stomach Qualified Code(s) : C16.1 - Malignant neoplasm of fundus of stomach (6) Coronary artery disease Priority: Secondary Status: Chronic Comments: Status post 2 vessel CABG in 2007 with previous PCI. Continue aspirin, statin, beta yadi. Troponin of 0.05 likely from demand ischemia from SVT. Qualifiers: Coronary Disease-Associated Artery/Lesion type: bypass graft, autologous vein Associated angina: without angina Qualified Code(s): I25.810 - Atherosclerosis of coronary artery bypass graft(s) without angina pectoris (7) Seizure Priority: Secondary Status: Chronic Comments: hx of seizure on Dilantin, will continue. - Discharge Medications Prescriptions: Amiodarone [Cordarone] 200 mg PO DAILY #30 tablet Metoprolol XL (24 HR) Succ [Toprol Xl] 25 mg PO BID 30 Days Potassium Chloride [Klor-Con 10] 10 meq PO DAILY #20 tablet.er Home Medications: Atorvastatin [Lipitor] 40 mg PO HS 04/16/16 [History] DiphenhydraMINE [Benadryl] 25 mg PO HS 04/16/16 [History] Levothyroxine [Synthroid] 88 mcg PO QAM 04/16/16 [History] Loratadine [Claritin] 10 mg PO DAILY PRN 04/16/16 [History] Melatonin 6 mg PO HS 04/16/16 [History] Multivitamin [Multi-Day Vitamins] 1 each PO DAILY 04/16/16 [History] Omeprazole [PriLOSEC] 40 mg PO BID 04/16/16 [History] Phenytoin ER [Dilantin ER] 200 mg PO TID 04/16/16 [History] Resveratrol 100 mg PO DAILY 04/16/16 [History] Terazosin HCl 4 mg PO HS 04/16/16 [History] Triamcinolone Acetonide 1 appl TP DAILY 04/16/16 [History] Valsartan [Diovan] 320 mg PO DAILY 04/16/16 [History] Lidocaine/Prilocaine CREAM [Emla] 1 appl TP AD PRN #1 tube 05/03/16 [Rx] Magic Mouthwash 5 - 10 ml PO TID PRN #480 ml 06/20/16 [Rx] Aspirin [Lo-Dose Aspirin EC] 81 mg PO DAILY 07/06/16 [History] Mirtazapine [Remeron] 15 mg PO HS #30 tablet 08/22/16 [Rx] Furosemide [Lasix] 40 mg PO DAILY PRN #30 tablet 11/29/16 [Rx] Megestrol Acetate [Megace] 10 ml PO QAM #300 mls 12/04/16 [Rx] Oxycodone HCl [Oxaydo] 5 mg PO Q2H PRN #90 tablet.orl 02/12/17 [Rx] Prochlorperazine Maleate [Compazine] 10 mg PO Q6HR PRN #60 tablet 02/28/17 [Rx] Morphine Sulfate SR (12 HR) [MS Contin] 15 mg PO Q8HR PRN 03/21/17 [History] Sennosides [Senna] 17.2 mg PO HS PRN 03/21/17 [History] Acetaminophen [Tylenol] 650 mg PO Q6HR PRN #0 tablet 03/27/17 [Rx] Amiodarone [Cordarone] 200 mg PO DAILY #30 tablet 03/27/17 [Rx] Docusate [Colace] 100 mg PO BID capsule 03/27/17 [Rx] Metoprolol XL (24 HR) Succ [Toprol Xl] 25 mg PO BID 30 Days 03/27/17 [Rx] Morphine Sulfate SR (12 HR) [MS Contin] 15 mg PO Q8HR tablet.er 03/27/17 [Rx] Potassium Chloride [Klor-Con 10] 10 meq PO DAILY #20 tablet.er 03/27/17 [Rx] Psyllium [Metamucil Fiber Singles Packet] 1 packet PO DAILY PRN #0 powd.pack 05/06 [Rx] Allergies/Adverse Reactions: Allergies No Known Allergies Allergy (Verified 03/21/17 14:54) Date of admission: 03/22/17 12:17 Primary care physician: Musa Lewis MD Consults: 03/23/17 09:34 Consult to Palliative Care [CONS] Routine Comment: Consulting Provider: Palliative [facility] Reason for Consult: Stage 4 sotmach CA, SVTs, uncontrolled, for goals of care and possibly home hospice Call Completed: No 03/24/17 09:21 Consult to Electrophysiology (EP) [CONS] Routine Consulting Provider: Electrophysiology [facility] Reason for Consult: PSVT Call Completed: Yes 03/25/17 11:04 Consult to Occupational Therapy [CONS] Routine Comment: Evaluate, develop and implement POC Reason for Consult: discharge planning Consult to Physical Therapy [CONS] Routine Comment: Evaluate, develop and implement POC Reason for Consult: discharge planning 03/26/17 11:04 Consult to Oncology [CONS] Routine Consulting Provider: [facility] Reason for Consult: gastric cancer Call Completed: No 03/26/17 11:21 Consult to Podiatry [CONS] Routine Consulting Provider: [facility] Reason for Consult: ingrown toenails Call Completed: No Anticipated date of discharge: 03/27/17 - Patient Status Disposition: Transfer SNF Condition: Fair Functional capacity at discharge: uses cane/walker Overall status at discharge: patient is progressing back to baseline - Discharge Instructions Follow Up With: Musa Lewis MD [Primary Care Provider] - [facility] - Diet and Activity Activity: ambulate only with your walker Diet: low salt diet Hospital course: Mr. Llamas is a 82 year old male. presented with PSVT. Cardiology consulted. Now in NSR. Will be continued on PO Amiodarone and BB. PSVT likley due to gastric cancer. Patient is receiving palliative chemotherapy. Oncology has evaluated patient in the hospital. All home meds were continued. Patient and family explained about condition and plan of care. They understood and agreed. No unanswered questions. They were also explained about poor prognosis due to gastric cancer. 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 No other complications. Patient states he feels better and wants to go to rehab facility. Palliative care has also evaluated patient. - Time Spent with Patient Total time spent providing and/or coordinating discharge services: Greater than 30 minutes - Constitutional Vitals: Temp Pulse Resp BP Pulse Ox 98.5 F 71 15 117/68 99 03/27/17 12:07 03/27/17 12:07 03/27/17 12:07 03/27/17 12:07 03/27/17 12:07 General appearance: Present: A&O X 3, pleasant, no acute distress, answers questions appropriately - Head Head exam: Present: atraumatic - ENT ENT exam: Present: mucous membranes moist - Neck Neck exam general surgery: Present: supple - Respiratory Respiratory exam: Present: CTAB. Absent: rhonchi, wheezes - Cardiovascular Cardiovascular exam: Present: RRR, +S1, +S2 - GI/Abdominal GI/Abdominal exam: Present: soft. Absent: guarding, tenderness - Extremities Exam Extremities exam: Present: pedal edema, radial pulses palpable and symetrical. Absent: cyanotic, tenderness - Neurological Exam Neurological exam: Present: alert, oriented X3, no focal deficits
--- NOTE | 2017-03-27 13:41 | Physician Discharge Referral ---
[facility] Referral Info Transfer To: [facility] Provider in Charge after Transfer: PCP Institutional Level of Care: Skilled - Diagnosis (1) PSVT (paroxysmal supraventricular tachycardia) Status: Resolved (2) PAF (paroxysmal atrial fibrillation) Status: Chronic (3) Hypothyroid Status: Chronic (4) JACK (iron deficiency anemia) Status: Chronic (5) Gastric cancer Status: Chronic (6) Coronary artery disease Status: Chronic (7) Seizure Status: Chronic - Transfer Medications Prescriptions: Amiodarone [Cordarone] 200 mg PO DAILY #30 tablet Metoprolol XL (24 HR) Succ [Toprol Xl] 25 mg PO BID 30 Days Potassium Chloride [Klor-Con 10] 10 meq PO DAILY #20 tablet.er Home Medications: Atorvastatin [Lipitor] 40 mg PO HS 04/16/16 [History] DiphenhydraMINE [Benadryl] 25 mg PO HS 04/16/16 [History] Levothyroxine [Synthroid] 88 mcg PO QAM 04/16/16 [History] Loratadine [Claritin] 10 mg PO DAILY PRN 04/16/16 [History] Melatonin 6 mg PO HS 04/16/16 [History] Multivitamin [Multi-Day Vitamins] 1 each PO DAILY 04/16/16 [History] Omeprazole [PriLOSEC] 40 mg PO BID 04/16/16 [History] Phenytoin ER [Dilantin ER] 200 mg PO TID 04/16/16 [History] Resveratrol 100 mg PO DAILY 04/16/16 [History] Terazosin HCl 4 mg PO HS 04/16/16 [History] Triamcinolone Acetonide 1 appl TP DAILY 04/16/16 [History] Valsartan [Diovan] 320 mg PO DAILY 04/16/16 [History] Lidocaine/Prilocaine CREAM [Emla] 1 appl TP AD PRN #1 tube 05/03/16 [Rx] Magic Mouthwash 5 - 10 ml PO TID PRN #480 ml 06/20/16 [Rx] Aspirin [Lo-Dose Aspirin EC] 81 mg PO DAILY 07/06/16 [History] Mirtazapine [Remeron] 15 mg PO HS #30 tablet 08/22/16 [Rx] Furosemide [Lasix] 40 mg PO DAILY PRN #30 tablet 11/29/16 [Rx] Megestrol Acetate [Megace] 10 ml PO QAM #300 mls 12/04/16 [Rx] Oxycodone HCl [Oxaydo] 5 mg PO Q2H PRN #90 tablet.orl 02/12/17 [Rx] Prochlorperazine Maleate [Compazine] 10 mg PO Q6HR PRN #60 tablet 02/28/17 [Rx] Morphine Sulfate SR (12 HR) [MS Contin] 15 mg PO Q8HR PRN 03/21/17 [History] Sennosides [Senna] 17.2 mg PO HS PRN 03/21/17 [History] Acetaminophen [Tylenol] 650 mg PO Q6HR PRN #0 tablet 03/27/17 [Rx] Amiodarone [Cordarone] 200 mg PO DAILY #30 tablet 03/27/17 [Rx] Docusate [Colace] 100 mg PO BID capsule 03/27/17 [Rx] Metoprolol XL (24 HR) Succ [Toprol Xl] 25 mg PO BID 30 Days 03/27/17 [Rx] Morphine Sulfate SR (12 HR) [MS Contin] 15 mg PO Q8HR tablet.er 03/27/17 [Rx] Potassium Chloride [Klor-Con 10] 10 meq PO DAILY #20 tablet.er 03/27/17 [Rx] Psyllium [Metamucil Fiber Singles Packet] 1 packet PO DAILY PRN #0 powd.pack 05/06 [Rx] Allergies/Adverse Reactions: Allergies No Known Allergies Allergy (Verified 03/21/17 14:54) - Respiratory Orders Smoking Cessation: Smoking cessation has been advised. For more information, call the [place] Tobacco Quit Line at 7-448-HTQQ-NOW. - Lab Orders Lab Orders: CBC - Ancillary Orders May use pressure relief devices daily prn - Advance Directives Code Status: DNR-Arrest/Don't Intubate - Mobility Orders Ambulate - Rehabiliation Orders Rehab Potential: Fair Rehab Orders: Evaluation for Physical Therapy, Evaluation for Occupational Therapy - Treatments Skin tear care topically daily PRN per policy - Diet Orders Cardiac CERTIFICATION: I certify that the transfer of the above named patient to an Extended Care Facility is necessary for the continuing treatment of the diagnosis listed. The above information is true and accurate reflection of patient's current condition. Confidential - Redisclosure prohibited without a patient's written consent.
== END 2017-03-27 14:19 | DRG 309 ==
LOC: 2NENU 14:46 → EMEROO 14:46 → 2NENU 19:15 → 2NNU 03-22 11:57
PROVIDERS: ADMIT Internal Medicine; ATTEND Internal Medicine